=== PATIENT | male | born 1940 | race Caucasian/White ===

== ENCOUNTER 2016-11-18 13:40 | Emergency (ER) | payer MEDICARE, OTHER ==
--- NOTE | 2016-11-18 13:32 | EDM.PDOC ---
ED HPI GENERAL MEDICAL PROBLEM - General Chief Complaint: Lower Extremity Injury/Pain Stated Complaint: IN BY AMBULANCE Time Seen by Provider: 11/18/16 13:27 Source of Information: Reports: Patient History Limitations: Reports: No Limitations - History of Present Illness INITIAL COMMENTS - FREE TEXT/NARRATIVE: 76 yo white male c/o fall off of bar stool two hours ago. No LOC. Pt. c/o Left side pelvic and thigh pain Onset: Today Onset Date: 11/18/16 Onset Time: 12:30 Duration: Hour(s): Location: Reports: Pelvis, Lower Extremity, Left Quality: Reports: Ache Severity: Moderate Improves with: Reports: Rest Worsens with: Reports: Movement Context: Reports: Trauma (fall off of bar stool) Associated Symptoms: Reports: No Other Symptoms Left Hip Pain Score (Numeric/FACES): 7 - Related Data Allergies Allergy/AdvReac Type Severity Reaction Status Date / Time Penicillins Allergy Cannot Verified 11/18/16 14:05 Remember Home Meds: Home Meds . [No Known Home Meds] 11/18/16 [History] Review of Systems - Review of Systems Review Of Systems: See Below Constitutional: Reports: No Symptoms Eyes: Reports: No Symptoms Ears: Reports: No Symptoms Nose: Reports: No Symptoms Mouth/Throat: Reports: No Symptoms Respiratory: Reports: No Symptoms Cardiovascular: Reports: No Symptoms GI/Abdominal: Reports: No Symptoms Genitourinary: Reports: No Symptoms Musculoskeletal: Reports: Joint Pain (left hip, left pelvis and left thigh) Skin: Reports: No Symptoms Neurological: Reports: No Symptoms Psychiatric: Reports: No Symptoms ED EXAM, GENERAL - Physical Exam Exam: See Below Exam Limited By: No Limitations General Appearance: Alert, WD/WN, No Apparent Distress Eye Exam: Bilateral Eye: EOMI, PERRL Ears: Normal External Exam Nose: Normal Inspection Throat/Mouth: Normal Inspection Head: Atraumatic Neck: Normal Inspection Respiratory/Chest: No Respiratory Distress Cardiovascular: Normal Peripheral Pulses, Regular Rate, Rhythm Peripheral Pulses: 2+: Femoral (L), Femoral (R), Dorsalis Pedis (L), Dorsalis Pedis (R) GI/Abdominal: Normal Bowel Sounds Back Exam: Normal Inspection, Full Range of Motion Extremities: Normal Inspection, Leg Pain (left femur area), Limited Range of Motion (left hip) Neurological: Alert, Oriented, CN II-XII Intact, Normal Cognition Psychiatric: Normal Affect, Normal Mood Skin Exam: Warm, Dry, Intact Lymphatic: No Adenopathy Course - Vital Signs Last Recorded V/S: Last Vital Signs Temp 36.7 C 11/18/16 13:33 Pulse 79 11/18/16 13:33 Resp 24 H 11/18/16 13:33 BP 123/59 L 11/18/16 13:33 Pulse Ox 88 L 11/18/16 13:33 - Orders/Labs/Meds Orders: Active Orders 24 hr Category Date Time Status Chest 1V Frontal [CR] Urgent Exams 11/18/16 13:28 Taken Femur wo Cont Lt [CT] Urgent Exams 11/18/16 13:27 Taken Pelvis wo Cont [CT] Urgent Exams 11/18/16 13:27 Taken COMPREHENSIVE METABOLIC PN,CMP [CHEM] Stat Lab 11/18/16 13:45 Received INR,PT,PROTHROMBIN TIME [COAG] Stat Lab 11/18/16 13:45 Received PTT,PARTIAL THROMBOPLSTIN TIME [COAG] Stat Lab 11/18/16 13:45 Received Labs: Laboratory Tests 11/18/16 Range/Units 13:45 WBC 13.3 H (5.0-10.0) 10^3/uL RBC 4.45 L (4.6-6.2) 10^6/uL Hgb 13.9 L (14.0-18.0) g/dL Hct 42.3 (40.0-54.0) % MCV 95.1 (80-100) fL MCH 31.2 (27.0-34.0) pg MCHC 32.9 L (33.0-35.0) g/dL Plt Count 182 (150-450) 10^3/uL Neut % (Auto) 88.0 H (42.2-75.2) % Lymph % (Auto) 5.9 L (20.5-50.1) % [place] % (Auto) 5.2 (2-8) % Eos % (Auto) 0.7 L (1.0-3.0) % Baso % (Auto) 0.2 (0.0-1.0) % Departure - Departure Time of Disposition: 14:21 Disposition: DC/Tfer to Other 70 Condition: Fair Clinical Impression: Intertrochanteric fracture, hip - Discharge Information Forms: ED Department Discharge, Interfacility Transfer EMTALA - My Orders Last 24 Hours: My Active Orders 11/18/16 13:27 Femur wo Cont Lt [CT] Urgent Pelvis wo Cont [CT] Urgent 11/18/16 13:28 Chest 1V Frontal [CR] Urgent 11/18/16 13:45 COMPREHENSIVE METABOLIC PN,CMP [CHEM] Stat INR,PT,PROTHROMBIN TIME [COAG] Stat PTT,PARTIAL THROMBOPLSTIN TIME [COAG] Stat - Assessment/Plan Last 24 Hours: My Active Orders 11/18/16 13:27 Femur wo Cont Lt [CT] Urgent Pelvis wo Cont [CT] Urgent 11/18/16 13:28 Chest 1V Frontal [CR] Urgent 11/18/16 13:45 COMPREHENSIVE METABOLIC PN,CMP [CHEM] Stat INR,PT,PROTHROMBIN TIME [COAG] Stat PTT,PARTIAL THROMBOPLSTIN TIME [COAG] Stat
[2016-11-18 13:38] VITALS: BP 123/59
[2016-11-18 14:20] LABS: CHLORIDE,CL 104 mmol/L (101-111); SODIUM,NA 143 mmol/L (135-145)
[2016-11-18] MEDS ORDERED: fentaNYL 100 MCG/2 ML SDV IVPUSH ONE (14:37)
== END 2016-11-18 15:05 ==
LOC: DL.ED 13:40
DX: S72.142A Displaced intertrochanteric fracture of left femur, initial encounter for closed fracture (principal); Z88.0 Allergy status to penicillin; W17.89XA Other fall from one level to another, initial encounter
CPT/HCPCS: 36415; 71010; 72192; 73700; 80053; 85025; 85610; 85730; 96374; 99284; 99285; J3010

== ENCOUNTER 2016-11-22 11:57 | Inpatient (IN) | payer MEDICARE, OTHER ==
[2016-11-22] MEDS ORDERED: Zolpidem 5 MG Tab PO PRN (14:14)
[2016-11-22] MEDS ORDERED: Sodium Chloride 0.9% 10 ML Syringe FLUSH PRN (14:14)
[2016-11-22] MEDS ORDERED: Docusate Sodium 100 MG Cap PO PRN (14:14)
[2016-11-22] MEDS ORDERED: Ondansetron 4 MG Tab.DIS PO PRN (14:14)
--- NOTE | 2016-11-22 14:34 | PCM.HP ---
H&P History of Present Illness - General Date of Service: 11/22/16 Admit Problem/Dx: Admission Diagnosis/Problem Admission Diagnosis/Problem Weakness Source of Information: Patient, Family - History of Present Illness Initial Comments - Free Text/Narative: The patient is a 76-year-old who has a history of COPD, chronic hypoxemic respiratory failure requiring home oxygen. The patient was hospitalized at [facility] with left hip fracture after he fell from a kitchen stool. The patient underwent short gamma nail fixation on 11/19/2016. The patient was felt to require further physical therapy and [facility]. He is rating the pain as 6 out of 10, worse with activity, better with rest and pain medications. This is since the accidental fall. No associated chest pain, no shortness of breath. He is normally using 2.5 L/m nasal cannula oxygen at home. - Related Data Allergies/Adverse Reactions: Allergies Allergy/AdvReac Type Severity Reaction Status Date / Time doxycycline Allergy Rash Verified 11/22/16 10:49 Penicillins Allergy Blisters Verified 11/22/16 13:22 Home Medications: Home Meds Acetaminophen [Acetaminophen Extra Strength] 500 mg PO PRN 11/22/16 [History] Budesonide [Pulmicort] 0.5 mg NEB DAILY 11/22/16 [History] Past Medical History HEENT History: Reports: Impaired Vision Cardiovascular History: Reports: None Respiratory History: Reports: COPD Genitourinary History: Reports: Urinary Incontinence Neurological History: Reports: None Hematologic History: Reports: Blood Transfusion(s) Oncologic (Cancer) History: Reports: Lung Other Oncologic History: not conclusive for cancer - Infectious Disease History Infectious Disease History: Reports: Chicken Pox, MRSA, Mumps - Past Surgical History HEENT Surgical History: Reports: None Respiratory Surgical History: Reports: None Male Surgical History: Reports: Other (See Below) Other Male Surgeries/Procedures: pt kicked in scrotum, had surgery to reduce swelling Musculoskeletal Surgical History: Reports: Other (See Below) Other Musculoskeletal Surgeries/Procedures:: knee surgery 30 years ago Oncologic Surgical History: Reports: None Dermatological Surgical History: Reports: None Social & Family History - Family History Family Medical History: Unobtainable - Tobacco Use Smoking Status *Q: Former Smoker Years of Tobacco use: 50 Packs/Tins Daily: 1 Used Tobacco, but Quit: Yes Month Tobacco Last Used: 2014 - Caffeine Use Caffeine Use: Reports: Soda, Tea H&P Review of Systems - Review of Systems: Review Of Systems: See Below General: Denies: Fever, Chills Pulmonary: Reports: Shortness of Breath (Chronic at baseline) Cardiovascular: Denies: Chest Pain Gastrointestinal: Denies: Abdominal Pain Neurological: Denies: Confusion Exam - Exam Exam: See Below - Vital Signs Vital Signs: Last Vital Signs Temp 36.9 C 11/22/16 13:04 Pulse 82 11/22/16 13:04 Resp 20 11/22/16 13:04 BP 126/75 11/22/16 13:04 Pulse Ox 100 11/22/16 13:04 Weight: 59.602 kg - Exam General: Alert, Oriented Lungs: Clear to Auscultation, Decreased Breath Sounds Cardiovascular: Regular Rate, Regular Rhythm Extremities: No Pedal Edema, Other (Left hip dressing) Neuro Extensive - Mental Status: Alert, Oriented x3 Psychiatric: Alert, Normal Affect, Normal Mood *Q Meaningful Use (ADM) - VTE *Q VTE Criteria *Q: - Stroke *Q Stroke Criteria *Q: - AMI *Q AMI Criteria *Q: - Problem List (1) COPD (chronic obstructive pulmonary disease) SNOMED Code(s): 55894499 ICD Code: J44.9 - CHRONIC OBSTRUCTIVE PULMONARY DISEASE, UNSPECIFIED Status : Acute Current Visit: Yes (2) Intertrochanteric fracture, hip SNOMED Code(s): 283988479 ICD Code: S72.143A - DISPLACED INTERTROCHANTERIC FRACTURE OF UNSP FEMUR, INIT Status: Acute Current Visit: No Problem List Initiated/Reviewed/Updated: Yes Orders Last 24hrs: Active Orders 24 hr Category Date Time Status Patient Status [ADT] Routine ADT 11/22/16 14:14 Ordered Antiembolic Devices [RC] PER UNIT ROUTINE Care 11/22/16 14:18 Ordered Oxygen Therapy [RC] PRN Care 11/22/16 14:14 Ordered Peripheral IV Care [RC] . DIRECTED Care 11/22/16 14:18 Ordered Up With Assistance [RC] ASDIRECTED Care 11/22/16 14:14 Ordered VTE/DVT Education [RC] PER UNIT ROUTINE Care 11/22/16 14:14 Ordered Vital Signs [RC] QSHIFT Care 11/22/16 14:14 Ordered OT Evaluation and Treatment [CONS] Routine Cons 11/22/16 14:14 Ordered PT Evaluation and Treatment [CONS] Routine Cons 11/22/16 14:14 Ordered Regular Diet [DIET] Diet 11/22/16 Dinner Active Acetaminophen [Tylenol] Med 11/22/16 14:14 Ordered 650 mg PO Q4H PRN Docusate Sodium [Colace] Med 11/22/16 14:14 Ordered 100 mg PO BID PRN Enoxaparin [Lovenox] Med 11/23/16 09:00 Ordered 40 mg SUBCUT DAILY Mometasone/Formoterol [Dulera 100-5 MCG] Med 11/22/16 14:30 Ordered 2 puff IH BIDRT Ondansetron [Zofran ODT] Med 11/22/16 14:14 Ordered 4 mg PO Q6H PRN Sodium Chloride 0.9% [Saline Flush] Med 11/22/16 14:14 Ordered 10 ml FLUSH ASDIRECTED PRN Tiotropium [Spiriva HandiHaler] Med 11/23/16 09:00 Ordered 18 mcg INH DAILY Zolpidem [Ambien] Med 11/22/16 14:14 Ordered 5 mg PO BEDTIME PRN oxyCODONE Med 11/22/16 14:14 Ordered 5 mg PO Q4H PRN Antiembolic Hose [OM.PC] Per Unit Routine Oth 11/22/16 14:16 Ordered Peripheral IV Insertion Adult [OM.PC] Routine Oth 11/22/16 14:14 Ordered Saline Lock Insert [OM.PC] Routine Oth 11/22/16 14:14 Ordered Resuscitation Status Routine Resus Stat 11/22/16 14:14 Ordered Medication Orders Acetaminophen (Tylenol) 650 mg PO Q4H PRN PRN Reason: Pain (Mild 1-3)/fever Docusate Sodium (Colace) 100 mg PO BID PRN PRN Reason: Constipation Enoxaparin Sodium (Lovenox) 40 mg SUBCUT DAILY JAIRO Mometasone Furoate/Formoterol Fumar (Dulera 100-5 Mcg) 2 puff IH BIDRT JAIRO Ondansetron HCl (Zofran Odt) 4 mg PO Q6H PRN PRN Reason: nausea, able to take PO Oxycodone HCl (Oxycodone) 5 mg PO Q4H PRN PRN Reason: Pain (moderate 4-6) Sodium Chloride (Saline Flush) 10 ml FLUSH ASDIRECTED PRN PRN Reason: Keep Vein Open Tiotropium [place] (Spiriva Handihaler) 18 mcg INH DAILY JAIRO Zolpidem Tartrate (Ambien) 5 mg PO BEDTIME PRN PRN Reason: Sleep Assessment/Plan Comment:: The patient is a 76-year-old who has a history of COPD, chronic hypoxemic respiratory failure requiring home oxygen. The patient was hospitalized at [facility] with left hip fracture after he fell from a kitchen stool. The patient underwent short gamma nail fixation on 11/19/2016. The patient was felt to require further physical therapy and was transferred to swing bed. Status post left hip fracture We will admit the patient to swing bed. Consult physical and occupational therapy Postoperative acute blood loss anemia Will treat with iron Follow hemoglobin periodically DVT prophylaxis with Lovenox Pain control with Tylenol or oxycodone as needed COPD Treat with dulera, Spiriva Use DuoNeb as needed for shortness of breath or wheezing Chronic hypoxemic respiratory failure Continue oxygen supplement as needed
[2016-11-22] MEDS: Formoterol/Mometasone 100-5 MCG 8.8 GM Inhaler IH SCH ×2 (16:37→18:30)
[2016-11-23] MEDS: oxyCODONE 5 MG Tab PO PRN ×3 (01:09→20:55)
[2016-11-23] MEDS: Acetaminophen 325 MG Tab PO PRN ×2 (01:20→21:06)
[2016-11-23] MEDS: Formoterol/Mometasone 100-5 MCG 8.8 GM Inhaler IH SCH ×2 (06:43→17:38)
[2016-11-23] MEDS: Tiotropium Inhaler 18 MCG Inhalation Powder Cap Kit of 5 INH SCH (08:35)
[2016-11-23] MEDS: Enoxaparin 40 MG/0.4 ML Syringe SUBCUT SCH (08:36)
[2016-11-24] MEDS: Formoterol/Mometasone 100-5 MCG 8.8 GM Inhaler IH SCH ×2 (07:42→17:30)
[2016-11-24] MEDS: Enoxaparin 40 MG/0.4 ML Syringe SUBCUT SCH (09:14)
[2016-11-24] MEDS: Tiotropium Inhaler 18 MCG Inhalation Powder Cap Kit of 5 INH SCH (09:14)
[2016-11-24] MEDS: oxyCODONE 5 MG Tab PO PRN (22:57)
[2016-11-25] MEDS: oxyCODONE 5 MG Tab PO PRN ×2 (03:04→07:05)
[2016-11-25] MEDS: Formoterol/Mometasone 100-5 MCG 8.8 GM Inhaler IH SCH ×2 (06:55→17:40)
[2016-11-25] MEDS: Enoxaparin 40 MG/0.4 ML Syringe SUBCUT SCH (08:51)
[2016-11-25] MEDS: Tiotropium Inhaler 18 MCG Inhalation Powder Cap Kit of 5 INH SCH (08:52)
[2016-11-25] MEDS: Acetaminophen 325 MG Tab PO PRN (20:08)
[2016-11-26] MEDS: Formoterol/Mometasone 100-5 MCG 8.8 GM Inhaler IH SCH ×2 (06:36→17:55)
[2016-11-26 06:55] LABS: CHLORIDE,CL 103 mmol/L (101-111); SODIUM,NA 140 mmol/L (135-145)
[2016-11-26] MEDS: oxyCODONE 5 MG Tab PO PRN ×2 (08:27→20:55)
[2016-11-26] MEDS: Tiotropium Inhaler 18 MCG Inhalation Powder Cap Kit of 5 INH SCH (09:12)
[2016-11-26] MEDS: Enoxaparin 40 MG/0.4 ML Syringe SUBCUT SCH (09:13)
--- NOTE | 2016-11-26 10:19 | PCM.PN ---
- General Info Date of Service: 11/26/16 Subjective Update: Feeling good, pain in the leg is well controlled. Working with physical and occupational therapy well No shortness of breath, no chest pain On chronic oxygen supplement - Review of Systems General: Denies: Fever, Weakness Pulmonary: Denies: Shortness of Breath Cardiovascular: Denies: Chest Pain Gastrointestinal: Denies: Abdominal Pain Genitourinary: Denies: Dysuria - Patient Data Vitals - Most Recent: Last Vital Signs Temp 37.1 C 11/26/16 07:00 Pulse 57 L 11/26/16 07:00 Resp 20 11/26/16 07:00 BP 92/55 L 11/26/16 07:00 Pulse Ox 98 11/26/16 07:00 Weight - Most Recent: 59.602 kg I&O - Last 24 Hours: Intake & Output 11/25/16 11/26/16 11/26/16 22:59 06:59 14:59 Intake Total 120 400 Output Total 250 800 Balance -130 -400 Lab Results Last 24 Hours: Laboratory Results - last 24 hr 11/26/16 11/26/16 Range/Units 06:15 06:15 WBC 6.3 (5.0-10.0) 10^3/uL RBC 2.71 L (4.6-6.2) 10^6/uL Hgb 8.4 L (14.0-18.0) g/dL Hct 26.7 L (40.0-54.0) % MCV 98.5 (80-100) fL MCH 31.0 (27.0-34.0) pg MCHC 31.5 L (33.0-35.0) g/dL Plt Count 250 (150-450) 10^3/uL Neut % (Auto) 68.7 (42.2-75.2) % Lymph % (Auto) 15.5 L (20.5-50.1) % [place] % (Auto) 10.3 H (2-8) % Eos % (Auto) 5.2 H (1.0-3.0) % Baso % (Auto) 0.3 (0.0-1.0) % Sodium 140 (135-145) mmol/L Potassium 4.6 (3.6-5.0) mmol/L Chloride 103 (101-111) mmol/L Carbon Dioxide 28.0 (21.0-31.0) mmol/L Anion Gap 13.6 BUN 15 (7-18) mg/dL Creatinine 0.8 (0.6-1.3) mg/dL Est Cr Clr Drug Dosing 67.26 mL/min Estimated GFR (MDRD) > 60 Glucose 96 (74-105) mg/dL Calcium 8.5 (8.4-10.2) mg/dl Med Orders - Current: Current Medications Acetaminophen (Tylenol) 650 mg PO Q4H PRN PRN Reason: Pain (Mild 1-3)/fever Last Admin: 11/25/16 20:08 Dose: 650 mg Docusate Sodium (Colace) 100 mg PO BID PRN PRN Reason: Constipation Enoxaparin Sodium (Lovenox) 40 mg SUBCUT DAILY [facility] Last Admin: 11/26/16 09:13 Dose: 40 mg Mometasone Furoate/Formoterol Fumar (Dulera 100-5 Mcg) 2 puff IH BIDRT [facility] Last Admin: 11/26/16 06:36 Dose: 2 puff Ondansetron HCl (Zofran Odt) 4 mg PO Q6H PRN PRN Reason: nausea, able to take PO Oxycodone HCl (Oxycodone) 5 mg PO Q4H PRN PRN Reason: Pain (moderate 4-6) Last Admin: 11/26/16 08:27 Dose: 5 mg Sodium Chloride (Saline Flush) 10 ml FLUSH ASDIRECTED PRN PRN Reason: Keep Vein Open Tiotropium [place] (Spiriva Handihaler) 18 mcg INH DAILY [facility] Last Admin: 11/26/16 09:12 Dose: 18 mcg Zolpidem Tartrate (Ambien) 5 mg PO BEDTIME PRN PRN Reason: Sleep - Exam General: Alert, Oriented Neck: Supple Lungs: Clear to Auscultation, Normal Respiratory Effort Cardiovascular: Regular Rate, Regular Rhythm GI/Abdominal Exam: Normal Bowel Sounds, Soft Extremities: No Pedal Edema Skin: Warm, Dry - Problem List & Annotations (1) COPD (chronic obstructive pulmonary disease) SNOMED Code(s): 54531618 Code(s): J44.9 - CHRONIC OBSTRUCTIVE PULMONARY DISEASE, UNSPECIFIED Status : Acute Current Visit: Yes (2) Intertrochanteric fracture, hip SNOMED Code(s): 166546017 Code(s): S72.143A - DISPLACED INTERTROCHANTERIC FRACTURE OF UNSP FEMUR, INIT Status: Acute Current Visit: No - Problem List Review Problem List Initiated/Reviewed/Updated: Yes - My Orders Last 24 Hours: My Active Orders 11/27/16 09:00 Iron Polysaccharides Complex [Ferrex 150] 150 mg PO DAILY - Plan Plan:: The patient is a 76-year-old who has a history of COPD, chronic hypoxemic respiratory failure requiring home oxygen. The patient was hospitalized at [facility] with left hip fracture after he fell from a kitchen stool. The patient underwent short gamma nail fixation on 11/19/2016. The patient was felt to require further physical therapy and was transferred to swing bed. Status post left hip fracture Admitted to swing bed Doing well Continue physical and occupational therapy Postoperative acute blood loss anemia Will treat with iron Follow hemoglobin periodically DVT prophylaxis with Lovenox Pain control appears good with Tylenol or oxycodone as needed COPD Treat with dulera, Spiriva Use DuoNeb as needed for shortness of breath or wheezing Chronic hypoxemic respiratory failure Continue oxygen supplement as needed
[2016-11-26] MEDS: Iron Polysaccharides Complex 150 MG Cap PO SCH (12:48)
[2016-11-27] MEDS: oxyCODONE 5 MG Tab PO PRN ×2 (01:42→21:17)
[2016-11-27] MEDS: Formoterol/Mometasone 100-5 MCG 8.8 GM Inhaler IH SCH ×2 (06:40→18:05)
[2016-11-27] MEDS: Tiotropium Inhaler 18 MCG Inhalation Powder Cap Kit of 5 INH SCH (08:57)
[2016-11-27] MEDS: Enoxaparin 40 MG/0.4 ML Syringe SUBCUT SCH (08:58)
[2016-11-27] MEDS: Iron Polysaccharides Complex 150 MG Cap PO SCH (08:58)
[2016-11-28] MEDS: Formoterol/Mometasone 100-5 MCG 8.8 GM Inhaler IH SCH ×2 (06:09→18:22)
[2016-11-28] MEDS: Iron Polysaccharides Complex 150 MG Cap PO SCH (08:36)
[2016-11-28] MEDS: Enoxaparin 40 MG/0.4 ML Syringe SUBCUT SCH (08:36)
[2016-11-28] MEDS: Tiotropium Inhaler 18 MCG Inhalation Powder Cap Kit of 5 INH SCH (08:36)
[2016-11-29] MEDS: Formoterol/Mometasone 100-5 MCG 8.8 GM Inhaler IH SCH ×2 (06:26→18:01)
[2016-11-29] MEDS: Iron Polysaccharides Complex 150 MG Cap PO SCH (09:10)
[2016-11-29] MEDS: Enoxaparin 40 MG/0.4 ML Syringe SUBCUT SCH (09:11)
[2016-11-29] MEDS: Tiotropium Inhaler 18 MCG Inhalation Powder Cap Kit of 5 INH SCH (09:11)
[2016-11-30] MEDS: oxyCODONE 5 MG Tab PO PRN ×2 (00:35→23:16)
[2016-11-30] MEDS: Formoterol/Mometasone 100-5 MCG 8.8 GM Inhaler IH SCH ×2 (06:23→17:12)
[2016-11-30] MEDS: Tiotropium Inhaler 18 MCG Inhalation Powder Cap Kit of 5 INH SCH (09:27)
[2016-11-30] MEDS: Iron Polysaccharides Complex 150 MG Cap PO SCH (09:28)
[2016-11-30] MEDS: Enoxaparin 40 MG/0.4 ML Syringe SUBCUT SCH (09:28)
--- NOTE | 2016-11-30 23:28 | PN ---
DATE: 11/30/2016 HISTORY OF PRESENT ILLNESS: Mr. Woods is a 76-year-old gentleman who is a swing bed patient. He had a left hip fracture when he fell from a kitchen stool and underwent short gamma nail fixation on 11/19/2016. He was admitted to swing bed to recover and to work with Physical and Occupational Therapy. Other past medical history includes COPD with chronic hypoxic respiratory failure, requiring home oxygen. Mr. Woods is working on daily basis with Physical and Occupational Therapy. We observed him walking. Apparently, he had knee problems even prior to the surgery, and this has made walking and recovering a little bit more difficult for him, but he is working at it. He denies any chest pain or shortness of breath. He denies any abdominal pain. Review of his clinical data shows that he is taking in fluids. He is voiding and moving his bowels. Appetite is good. He is tolerating his diet. Vital signs are stable. He has remained afebrile. Lab work performed earlier this week included a CBC and a basic panel. Hemoglobin and hematocrit were noted to be 8.4 and 26.7 at that time. Hemoglobin and hematocrit were repeated this morning and have improved to 9.3 and 29.5. PHYSICAL EXAMINATION: GENERAL: On exam, he is seated comfortably in his recliner. He is a pleasant gentleman. Voices no new concerns or complaints. HEENT: Unremarkable. ENT is clear. CHEST: Shows diminished bilateral breath sounds. HEART: Shows regular rate and rhythm. ABDOMEN: Soft and benign. EXTREMITIES: The calves are soft and nontender. NEUROLOGIC: He is intact. PLAN: He will continue to work with Physical and Occupational Therapy. There is a care conference that will be held shortly, and he will continue with his goals of returning to home. [facility] /[id number] MTDD
[2016-12-01] MEDS: Formoterol/Mometasone 100-5 MCG 8.8 GM Inhaler IH SCH ×2 (07:30→17:34)
[2016-12-01] MEDS: Enoxaparin 40 MG/0.4 ML Syringe SUBCUT SCH (09:29)
[2016-12-01] MEDS: Tiotropium Inhaler 18 MCG Inhalation Powder Cap Kit of 5 INH SCH (09:29)
[2016-12-01] MEDS: Iron Polysaccharides Complex 150 MG Cap PO SCH (09:29)
[2016-12-01] MEDS: oxyCODONE 5 MG Tab PO PRN (23:44)
[2016-12-02] MEDS: oxyCODONE 5 MG Tab PO PRN ×2 (09:50→22:21)
[2016-12-02] MEDS: Tiotropium Inhaler 18 MCG Inhalation Powder Cap Kit of 5 INH SCH (09:50)
[2016-12-02] MEDS: Iron Polysaccharides Complex 150 MG Cap PO SCH (09:50)
[2016-12-02] MEDS: Formoterol/Mometasone 100-5 MCG 8.8 GM Inhaler IH SCH ×2 (09:51→17:44)
[2016-12-02] MEDS: Enoxaparin 40 MG/0.4 ML Syringe SUBCUT SCH (09:51)
[2016-12-03] MEDS: Formoterol/Mometasone 100-5 MCG 8.8 GM Inhaler IH SCH ×2 (06:15→17:39)
[2016-12-03] MEDS: Iron Polysaccharides Complex 150 MG Cap PO SCH (08:55)
[2016-12-03] MEDS: Tiotropium Inhaler 18 MCG Inhalation Powder Cap Kit of 5 INH SCH (08:56)
[2016-12-03] MEDS: Enoxaparin 40 MG/0.4 ML Syringe SUBCUT SCH (08:56)
[2016-12-03] MEDS: oxyCODONE 5 MG Tab PO PRN (23:08)
[2016-12-04] MEDS: Iron Polysaccharides Complex 150 MG Cap PO SCH (09:23)
[2016-12-04] MEDS: Formoterol/Mometasone 100-5 MCG 8.8 GM Inhaler IH SCH ×2 (09:23→17:33)
[2016-12-04] MEDS: Enoxaparin 40 MG/0.4 ML Syringe SUBCUT SCH (09:23)
[2016-12-04] MEDS: Tiotropium Inhaler 18 MCG Inhalation Powder Cap Kit of 5 INH SCH (09:24)
[2016-12-04] MEDS: Acetaminophen 325 MG Tab PO PRN (22:33)
[2016-12-05] MEDS: Formoterol/Mometasone 100-5 MCG 8.8 GM Inhaler IH SCH ×2 (06:07→17:58)
[2016-12-05] MEDS: Enoxaparin 40 MG/0.4 ML Syringe SUBCUT SCH (08:12)
[2016-12-05] MEDS: Iron Polysaccharides Complex 150 MG Cap PO SCH (08:12)
[2016-12-05] MEDS: Tiotropium Inhaler 18 MCG Inhalation Powder Cap Kit of 5 INH SCH (08:12)
[2016-12-05] MEDS: oxyCODONE 5 MG Tab PO PRN (08:38)
[2016-12-06] MEDS: oxyCODONE 5 MG Tab PO PRN ×2 (02:02→08:17)
--- NOTE | 2016-12-06 02:39 | PN ---
DATE: 12/05/2016 SUBJECTIVE: Mr. Woods continues to work with Physical and Occupational Therapy. His endurance is improving. His gait remains somewhat impaired by his knees which are arthritic and quite stiff. He was seen in followup on 12/05/2016, by his orthopedist, Dr. Beard. Dr. Beard recommended to continue weightbearing as tolerated. To continue with Physical and Occupational Therapy, and he will see Mr. Woods back in followup in 4 weeks. Review of his clinical data shows that he is drinking adequate fluids. He is tolerating 100% of most of his meals. He is voiding and moving his bowels. Vital signs have remained stable and he remained afebrile. PHYSICAL EXAMINATION: General: He is seated comfortably in his recliner. Apparently, he sleeps in the recliner most nights as well. He voices no concerns or complaints. No chest pain or shortness of breath. No abdominal pain. No calf or leg pain. Vital Signs: On exam today, blood pressure is 109/53, pulse 81, respiratory rate 20, oxygen saturation 100% on 2 L. He is afebrile. HEENT: Is unremarkable. Chest: Showed diminished bilateral breath sounds. Heart: Showed regular rate and rhythm. Abdomen: Soft and benign. Extremities: Showed the calves to be soft and nontender. There was no peripheral edema. IMPRESSION: A 76-year-old gentleman who is status post left hip fracture following a fall at home and placement of a short Gamma nail fixation on 11/19/2016. He continues to work with Physical and Occupational Therapy and will follow up with Orthopedics in 4 weeks. His chronic and severe COPD remained stable without exacerbation. [facility] /[id number]
[2016-12-06] MEDS: Formoterol/Mometasone 100-5 MCG 8.8 GM Inhaler IH SCH ×2 (06:39→18:36)
[2016-12-06] MEDS: Tiotropium Inhaler 18 MCG Inhalation Powder Cap Kit of 5 INH SCH (08:17)
[2016-12-06] MEDS: Iron Polysaccharides Complex 150 MG Cap PO SCH (08:19)
[2016-12-06] MEDS: Enoxaparin 40 MG/0.4 ML Syringe SUBCUT SCH (08:20)
[2016-12-07] MEDS: Tiotropium Inhaler 18 MCG Inhalation Powder Cap Kit of 5 INH SCH (08:56)
[2016-12-07] MEDS: Enoxaparin 40 MG/0.4 ML Syringe SUBCUT SCH (08:56)
[2016-12-07] MEDS: Iron Polysaccharides Complex 150 MG Cap PO SCH (08:56)
[2016-12-07] MEDS: Formoterol/Mometasone 100-5 MCG 8.8 GM Inhaler IH SCH ×2 (08:56→17:25)
[2016-12-07] MEDS: oxyCODONE 5 MG Tab PO PRN (22:02)
[2016-12-08] MEDS: Formoterol/Mometasone 100-5 MCG 8.8 GM Inhaler IH SCH ×2 (07:20→23:42)
[2016-12-08] MEDS: Tiotropium Inhaler 18 MCG Inhalation Powder Cap Kit of 5 INH SCH (09:08)
[2016-12-08] MEDS: Enoxaparin 40 MG/0.4 ML Syringe SUBCUT SCH (09:08)
[2016-12-08] MEDS: Iron Polysaccharides Complex 150 MG Cap PO SCH (09:09)
[2016-12-09] MEDS: Formoterol/Mometasone 100-5 MCG 8.8 GM Inhaler IH SCH ×2 (07:06→17:43)
[2016-12-09] MEDS: Tiotropium Inhaler 18 MCG Inhalation Powder Cap Kit of 5 INH SCH (08:43)
[2016-12-09] MEDS: Enoxaparin 40 MG/0.4 ML Syringe SUBCUT SCH (08:43)
[2016-12-09] MEDS: Iron Polysaccharides Complex 150 MG Cap PO SCH (08:43)
[2016-12-10] MEDS: Formoterol/Mometasone 100-5 MCG 8.8 GM Inhaler IH SCH ×2 (08:04→17:52)
[2016-12-10] MEDS: Enoxaparin 40 MG/0.4 ML Syringe SUBCUT SCH (08:04)
[2016-12-10] MEDS: Iron Polysaccharides Complex 150 MG Cap PO SCH (08:05)
[2016-12-10] MEDS: Tiotropium Inhaler 18 MCG Inhalation Powder Cap Kit of 5 INH SCH (09:49)
--- NOTE | 2016-12-10 12:40 | PN ---
DATE: 12/10/2016 SUBJECTIVE: Mr. Altaf Woods is a 76-year-old male with medical history significant for chronic obstructive pulmonary airway disease, chronic hypoxic respiratory failure requiring home oxygen, severe osteoarthritis, underwent left hip arthroplasty after he fell down from a kitchen stool and underwent Gamma Nail fixation on November 19, 2016, and currently in swing bed undergoing physical therapy and occupational therapy. For the last 24 hours, the patient denies any complaints of chest pain. No complaints of shortness of breath. No complaints of abdominal pain. No nausea. No vomiting. No diarrhea. Complains of mild pain at the surgical site which is the left hip. He is able to ambulate with the help of physical therapy. REVIEW OF SYSTEMS: Cardiovascular, respiratory, gastrointestinal, neurology, and constitutional were all evaluated. PHYSICAL EXAMINATION: Vital Signs: Temperature of 97.9, pulse of 52, respiratory rate of 20, saturating at 100% on 2 L of oxygen, and blood pressure of 99/49. General Appearance: The patient is well oriented to time, place, and person. Follows commands spontaneously. Cardiovascular System: S1 and S2 heard with normal intensity. No gallops. Respiratory System: Clear to auscultation bilaterally. No wheeze. No crepitations. Abdomen: Soft. Bowel sounds positive. Nontender. No rigidity. Extremities: No edema, bilateral lower extremities. Neurology: No gross focal neurological deficit. MEDICATIONS: Continue with: 1. Tylenol 650 every 4 hours as needed for pain and fever. 2. Lovenox 40 mg subcutaneous daily. 3. Dulera two puff inhalation twice a day. 4. Zofran 4 mg every 6 hours as needed for nausea. 5. Oxycodone 5 mg every 4 hours as needed for pain. 6. Spiriva inhalation 18 mcg daily. 7. Ambien 5 mg at bedtime as needed for sleep. ASSESSMENT: 1. Status post Gamma Nail fixation of the left hip. 2. Chronic obstructive pulmonary disease. 3. Chronic hypoxic respiratory failure. PLAN: 1. Left hip fracture, resulting in Gamma Nail fixation. The patient appears to be stable at this time. He is able to weight bear on the left hip site. Continue with physical therapy and occupational therapy. Encourage the patient to ambulate. Continue DVT prophylaxis with Lovenox. 2. Chronic obstructive pulmonary disease. The patient is currently on an inhalation treatment. Continue the same. The patient is encouraged to use incentive spirometer for better pulmonary toileting. No wheeze noted on lung exam today. 3. Chronic hypoxic respiratory failure. Continue the same. Try to maintain saturations around 95%. Continue with supplemental oxygen. 4. Continue with ongoing physical therapy and occupational therapy. 5. Discharge plans ongoing. [facility] /[id number]
[2016-12-11] MEDS: Tiotropium Inhaler 18 MCG Inhalation Powder Cap Kit of 5 INH SCH (09:16)
[2016-12-11] MEDS: Iron Polysaccharides Complex 150 MG Cap PO SCH (09:16)
[2016-12-11] MEDS: Formoterol/Mometasone 100-5 MCG 8.8 GM Inhaler IH SCH ×2 (09:16→17:56)
[2016-12-11] MEDS: Enoxaparin 40 MG/0.4 ML Syringe SUBCUT SCH (09:16)
[2016-12-12] MEDS: Formoterol/Mometasone 100-5 MCG 8.8 GM Inhaler IH SCH ×2 (06:04→18:15)
[2016-12-12] MEDS: Iron Polysaccharides Complex 150 MG Cap PO SCH (08:36)
[2016-12-12] MEDS: Enoxaparin 40 MG/0.4 ML Syringe SUBCUT SCH (08:36)
[2016-12-12] MEDS: Tiotropium Inhaler 18 MCG Inhalation Powder Cap Kit of 5 INH SCH (08:36)
[2016-12-13] MEDS: Formoterol/Mometasone 100-5 MCG 8.8 GM Inhaler IH SCH ×2 (06:35→17:44)
[2016-12-13] MEDS: Iron Polysaccharides Complex 150 MG Cap PO SCH (09:21)
[2016-12-13] MEDS: Enoxaparin 40 MG/0.4 ML Syringe SUBCUT SCH (09:21)
[2016-12-13] MEDS: Tiotropium Inhaler 18 MCG Inhalation Powder Cap Kit of 5 INH SCH (09:27)
--- NOTE | 2016-12-13 12:39 | PCM.SN ---
- Free Text/Narrative Note: [id number] Encounter for Front-wheeled walker. Mr. Woods was seen and examined on 12/13/2016. Mr. Woods fell on 11/18/2016 and sustained a left intertrochanteric hip fracture. He underwent ORIF and placement of a short gamma nail on 11/19/2016. He was admitted to swing bed in [place] on 11/22/2016 for recovery and to work with physical and occupational therapy. Physical and Occupational Therapy feel that he can safely use a front-wheeled walker with a tray. Will use with tennis balls. Reason for walker: Mr. Woods has an impaired gait due to recent hip fracture , as well as osteoarthritis of the knees. He has limited endurance due to COPD and chronic hypoxic respiratory failure and is on home oxgen. Length of need: 99 Associated diagnoses/codes: S72.142S R26.9 J44.9
--- NOTE | 2016-12-13 14:37 | PN ---
DATE: 12/13/2016 HISTORY OF PRESENT ILLNESS: Mr. Woods is a 76-year-old gentleman, who fell off a stool on November 18 and sustained a comminuted displaced left intertrochanteric fracture. On November 22, he underwent a short Gamma nail fixation and was admitted to swing bed on November 22 to recovery and to work with Physical and Occupational therapy. Therapy has been going well. His walking has improved, although, it is limited by osteoarthritis of the knees and stiffness as well as limited endurance due to his COPD with chronic hypoxia. Review of his clinical data shows that he is taking adequate fluids. He is voiding and moving his bowels. He is tolerating 100% of his meals. Vital signs are stable, and he remains afebrile. On exam, he is seated comfortably in his recliner. He voices no new concerns or complaints. He denies any chest pain or shortness of breath. No abdominal pain. No calf or leg pain. No falls or injuries. No issues of concern. PHYSICAL EXAMINATION: General: He is seated comfortably in his recliner. He voices no new concerns or complaints. He appeared comfortable. Vital Signs: Blood pressure 131/55, pulse 59, respiratory rate 18, oxygen saturation 97% on 2 L of nasal cannula, temperature 97.1. HEENT: Unremarkable. Chest: Showed clear, but diminished bilateral breath sounds. Heart: Showed regular rate and rhythm. Abdomen: Soft and benign. Extremities: Showed no edema. Neuro: Neurologically, he was intact. In preparation for his discharge tomorrow, a front wheeled walker with a tray was ordered. The prescription was filled out and sent to your home along with a [id number] encounter for a front wheeled walker. The walker is being ordered on the basis of hip fracture with impaired gait due to both the fracture and osteoarthritis in the knees, and the fact that he has poor endurance due to his COPD, and chronic hypoxic respiratory failure. We will inform the discharging physician tomorrow that this information will need to also be included in the discharge summary. Mr. Woods denied that he needed any other services, and no other changes were made in his care today. [facility] /[id number]
[2016-12-14] MEDS: Formoterol/Mometasone 100-5 MCG 8.8 GM Inhaler IH SCH (06:33)
[2016-12-14 07:01] VITALS: BP 111/42
[2016-12-14] MEDS: Enoxaparin 40 MG/0.4 ML Syringe SUBCUT SCH (09:16)
[2016-12-14] MEDS: Iron Polysaccharides Complex 150 MG Cap PO SCH (09:16)
[2016-12-14] MEDS: Tiotropium Inhaler 18 MCG Inhalation Powder Cap Kit of 5 INH SCH (09:17)
--- NOTE | 2017-03-01 09:15 | DISCH ---
DISCHARGE DIAGNOSES: 1. Status post comminuted displaced left intertrochanteric hip fracture, 11/18/2016. 2. Status post short Gamma nail fixation, 11/19/2016. 3. Chronic obstructive pulmonary disease/chronic hypoxic respiratory failure, stable. 4. Oxygen dependent. 5. Admitted for physical and occupational therapy during swing bed stay. BRIEF HISTORY OF PRESENT ILLNESS: Mr. Woods is a 76-year-old gentleman who fell off a stool at his home on 11/18. It sounds as if he may have caught his foot in the leg of the stool. He sustained a comminuted displaced left intertrochanteric fracture, and on 11/19, he underwent a short Gamma nail fixation and then later was admitted to swing bed on 11/22 to recover and to work with Physical and Occupational Therapy. PERTINENT LABS AND X-RAYS: CBC was checked during the admission. White count and platelets were normal. Hemoglobin and hematocrit were 8.4 and 26.7, and on recheck, prior to discharge, 9.3 and 29.5. Basic panel was checked. Electrolytes were normal. BUN and creatinine were 15 and 0.8 with a GFR of more than 60. No imaging studies were performed during this admission. HOSPITAL COURSE: Mr. Woods did well with physical therapy. His walking improved, although was quite limited by the osteoarthritis of his knees and stiffness as well as his limited endurance due to his COPD with chronic hypoxia. He was taking in adequate fluids. He was voiding and moving his bowels. He was tolerating 100% of his meals. His vital signs were stable. He remained afebrile. On the day of discharge, he felt ready to be discharged home. He was seated comfortably in his room. He voiced no new concerns or complaints. He denied any chest pain or shortness of breath. No abdominal pain. No calf or leg pain. No falls or injuries during this admission, and basically, he voiced no issues of concern. PHYSICAL EXAMINATION: Vital Signs: Blood pressure was 111/42, pulse 64, respiratory rate 20, oxygen saturation 94% on 2 L, and he was afebrile. Weight was 131 pounds 9.6 ounces. Height 5 feet 6 inches. HEENT: Unremarkable. Neck: No JVD or bruits. No adenopathy. Chest: Showed clear, but diminished bilateral breath sounds. Heart: Showed regular rate and rhythm. Abdomen: Soft and benign. Extremities: Showed no edema. Calves were soft and nontender. Neurologic: He was intact. In preparation for his discharge to home, a front-wheeled walker with a tray had been ordered. The prescription and [id number] encounter were filled out. The walker was ordered on the basis of the hip fracture with impaired gait due to both the fracture and his osteoarthritis in the knees and the fact that he has poor endurance due to his COPD and chronic hypoxic respiratory failure. Mr. Woods denied that he needed any other services, and no other changes were made in his care prior to discharge. DISCHARGE MEDICATIONS: 1. Tylenol 500 mg p.r.n. 2. Pulmicort 0.5 mg by nebulizer daily. ALLERGIES: Doxycycline and penicillin. CONDITION AT TIME OF DISCHARGE: Hemodynamically and neurologically stable. FOLLOWUP APPOINTMENT: January 01, at 10:[address] Beard, Orthopedics, at the [facility] in [place]. [facility] /[id number]
== END 2016-12-14 13:30 | disposition home or self-care (01) | DRG 560 ==
LOC: DL.MS 12:50 → EEVIPCON 12:50 → UNDOADMIN 12:50 → DL.MS 14:14
PROVIDERS: ADMIT Internal Medicine; ATTEND Internal Medicine
DX: Z47.89 Encounter for other orthopedic aftercare (principal); J96.11 Chronic respiratory failure with hypoxia; R53.1 Weakness; J44.9 Chronic obstructive pulmonary disease, unspecified; R32 Unspecified urinary incontinence; H54.7 Unspecified visual loss; Z88.0 Allergy status to penicillin; Z88.1 Allergy status to other antibiotic agents; Z87.891 Personal history of nicotine dependence; M17.0 Bilateral primary osteoarthritis of knee; S72.002D Fracture of unspecified part of neck of left femur, subsequent encounter for closed fracture with routine healing; W17.89XD Other fall from one level to another, subsequent encounter
CPT/HCPCS: 36415; 80048; 85014; 85018; 85025; 97110-GO; 97110-GP; 97116-GP; 97162-GP; 97165-GO; 97530-GO; 97535-GO; A9270-GY; J1650

== ENCOUNTER 2019-10-21 18:43 | Inpatient (IN) | payer MEDICARE, OTHER ==
[2019-10-21] MEDS ORDERED: Acetaminophen 325 MG Tab PO ONE (19:17)
--- NOTE | 2019-10-21 20:12 | CR ---
PROCEDURE INFORMATION: Exam: XR Chest, 1 View Exam date and time: 10/21/2019 7:54 PM Age: 79 years old Clinical indication: Shortness of breath; Additional info: SOB this afternoon, o2 dependent TECHNIQUE: Imaging protocol: XR of the chest Views: 1 view. COMPARISON: CR Chest 1V Frontal 11/18/2016 2:09 PM FINDINGS: Lungs: Bilateral perihilar and infrahilar ground-glass and streak like airspace opacifications are appreciated. COPD related pulmonary changes are appreciated. Mild pulmonary emphysema is also noted. Pleural space: Subtle blunting of the bilateral costophrenic angles. Heart/Mediastinum: Unremarkable. No cardiomegaly. Bones/joints: No acute abnormality or aggressive osseous lesion. IMPRESSION: 1. Concern for acute bilateral perihilar and infrahilar interstitial/airspace disease for which the differential would include infectious pneumonic process versus pulmonary edema. 2. Question of small bilateral pleural effusions. 3. COPD/emphysema is suggested.
[2019-10-21 20:19] LABS: ANION GAP 8.8 mEq/L (7-13); CHLORIDE,CL 98 mmol/L (98-107); SODIUM,NA 138 mmol/L (136-145)
--- NOTE | 2019-10-21 20:38 | EDM.PDOC ---
ED HPI GENERAL MEDICAL PROBLEM - General Chief Complaint: Respiratory Problem Stated Complaint: SORE THROAT/SOB/WEAKNESS Time Seen by Provider: 10/21/19 19:20 Source of Information: Reports: Patient, Other History Limitations: Reports: No Limitations - History of Present Illness INITIAL COMMENTS - FREE TEXT/NARRATIVE: ED with landcare facilitator reports increased weakness today, chronic cough, Patient reports some sore throat past couple of days. Hx COPD on oxygen at home, cough about same. Temp on presentation 101.2. 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 Appetite fair, no vomiting. - Related Data Allergies Allergy/AdvReac Type Severity Reaction Status Date / Time doxycycline Allergy Rash Verified 10/21/19 21:41 Penicillins Allergy Blisters Verified 10/21/19 21:41 Home Meds: Home Meds Acetaminophen [Acetaminophen Extra Strength] 500 mg PO ASDIRECTED PRN 11/22/16 [History] Budesonide [Pulmicort] 0.5 mg NEB DAILY 11/22/16 [History] Past Medical History HEENT History: Reports: Hard of Hearing, Impaired Vision Cardiovascular History: Reports: None Respiratory History: Reports: COPD Genitourinary History: Reports: Urinary Incontinence Neurological History: Reports: None Hematologic History: Reports: Blood Transfusion(s) Oncologic (Cancer) History: Reports: Lung Other Oncologic History: not conclusive for cancer - Infectious Disease History Infectious Disease History: Reports: Chicken Pox, MRSA, Mumps - Past Surgical History HEENT Surgical History: Reports: None Respiratory Surgical History: Reports: None Male Surgical History: Reports: Other (See Below) Other Male Surgeries/Procedures: pt kicked in scrotum, had surgery to reduce swelling Musculoskeletal Surgical History: Reports: Other (See Below) Other Musculoskeletal Surgeries/Procedures:: knee surgery 30 years ago Oncologic Surgical History: Reports: None Dermatological Surgical History: Reports: None Social & Family History - Family History Family Medical History: Unobtainable - Tobacco Use Smoking Status *Q: Former Smoker Used Tobacco, but Quit: Yes Month/Year Tobacco Last Used: unk - Caffeine Use Caffeine Use: Reports: None - Recreational Drug Use Recreational Drug Use: No ED ROS GENERAL - Review of Systems Review Of Systems: See Below ED EXAM, GENERAL - Physical Exam Exam: See Below Exam Limited By: No Limitations General Appearance: Alert, Thin Eye Exam: Bilateral Eye: EOMI Ears: Normal External Exam, Hearing Loss Nose: Normal Inspection Throat/Mouth: Other (tacky) Head: Atraumatic, Normocephalic Neck: Normal Inspection Respiratory/Chest: No Respiratory Distress, Decreased Breath Sounds, Crackles (bases) Cardiovascular: Normal Peripheral Pulses, Regular Rate, Rhythm GI/Abdominal: Normal Bowel Sounds, Soft Back Exam: Normal Inspection, Full Range of Motion Extremities: No: Pedal Edema Neurological: Alert, Oriented, Normal Cognition Psychiatric: Normal Affect Skin Exam: Warm, Dry, Other (cheeks flushed) Course - Vital Signs Last Recorded V/S: Last Vital Signs Temp 98.2 F 10/22/19 01:00 Pulse 53 L 10/22/19 01:00 Resp 16 10/22/19 01:00 BP 98/45 L 10/22/19 01:00 Pulse Ox 100 10/22/19 01:00 - Orders/Labs/Meds Orders: Active Orders 24 hr Category Date Time Status CULTURE BLOOD [] Stat Lab 10/21/19 19:42 Results CULTURE BLOOD [] Stat Lab 10/21/19 19:48 Received CULTURE STREP A CONFIRMATION [] Stat Lab 10/21/19 19:06 Results STREP SCRN A RAPID W CULT CONF [] Stat Lab 10/21/19 19:06 Results Sodium Chloride 0.9% [Normal Saline] 1,000 ml Med 10/21/19 20:54 Active IV .BOLUS Blood Culture x2 Reflex Set [OM.PC] Stat Oth 10/21/19 19:14 Ordered Medication Orders Acetaminophen (Tylenol) 650 mg PO Q6H PRN PRN Reason: Pain Albuterol (Proventil Neb Soln) 2.5 mg NEB Q4H PRN PRN Reason: shortness of breath/wheezing Albuterol/Ipratropium (Duoneb 3.0-0.5 Mg/3 Ml) 3 ml NEB Q6HRRT JAIRO Last Admin: 10/22/19 00:55 Dose: 3 ml Documented by: ANNAMARIA Budesonide (Pulmicort) 0.5 mg NEB DAILY JAIRO Docusate Sodium (Colace) 100 mg PO BID PRN PRN Reason: Constipation Enoxaparin Sodium (Lovenox) 40 mg SUBCUT DAILY JAIRO Sodium Chloride (Normal Saline) 1,000 mls @ 100 mls/hr IV .BOLUS ONE Stop: 10/22/19 06:53 Last Admin: 10/21/19 21:05 Dose: 100 mls/hr Documented by: EMILIANO Piperacillin Sod/Tazobactam (Sod 3.375 gm/ Sodium Chloride) 100 mls @ 200 mls/hr IV Q6H [facility] Last Admin: 10/21/19 22:32 Dose: 200 mls/hr Documented by: ANNAMARIA Vancomycin HCl 1 gm/ Sodium (Chloride) 250 mls @ 166.667 mls/hr IV Q24H [facility] Ondansetron HCl (Zofran Odt) 4 mg PO Q6H PRN PRN Reason: nausea, able to take PO Ondansetron HCl (Zofran) 4 mg IVPUSH Q6H PRN PRN Reason: Nausea/Vomiting Prednisone (Prednisone) 40 mg PO DAILY [facility] Last Admin: 10/21/19 22:32 Dose: 40 mg Documented by: ANNAMARIA Senna/Docusate Sodium (Senna Plus) 1 tab PO BEDTIME PRN PRN Reason: Constipation Vancomycin HCl (Pharmacy To Dose - Vancomycin) 1 dose .XX ASDIRECTED [facility] Labs: Laboratory Tests 10/21/19 10/21/19 10/21/19 Range/Units 19:05 19:42 19:42 WBC 8.8 (5.0-10.0) 10^3/uL RBC 4.26 L (4.6-6.2) 10^6/uL Hgb 13.4 L D (14.0-18.0) g/dL Hct 42.9 (40.0-54.0) % MCV 100.7 H (80-100) fL MCH 31.5 (27.0-34.0) pg MCHC 31.2 L (33.0-35.0) g/dL Plt Count 150 D (150-450) 10^3/uL Neut % (Auto) 85.7 H (42.2-75.2) % Lymph % (Auto) 4.6 L (20.5-50.1) % [place] % (Auto) 8.6 H (2-8) % Eos % (Auto) 0.9 L (1.0-3.0) % Baso % (Auto) 0.2 (0.0-1.0) % PT (9.0-12.0) SEC INR (0.9-1.2) Sodium (136-145) mmol/L Potassium (3.5-5.1) mmol/L Chloride (98-107) mmol/L Carbon Dioxide (21-32) mmol/L Anion Gap (7-13) mEq/L BUN (7-18) mg/dL Creatinine (0.70-1.30) mg/dL Est Cr Clr Drug Dosing Estimated GFR (MDRD) BUN/Creatinine Ratio (No establ ref range) Glucose (74-99) mg/dL Lactic Acid 1.3 (0.4-2.0) mmol/L Calcium (8.5-10.1) mg/dL Total Bilirubin (0.2-1.0) mg/dL AST (15-37) U/L ALT (16-63) U/L Alkaline Phosphatase (46-116) U/L Troponin I (0.000-0.056) ng/mL C-Reactive Protein (0.0-0.9) mg/dL B-Natriuretic Peptide (0-100) pg/ml Total Protein (6.4-8.2) g/dL Albumin (3.4-5.0) g/dL Globulin Albumin/Globulin Ratio COVID-19 (ANGELINA) Negative (NEGATIVE) 10/21/19 10/21/19 Range/Units 19:48 19:48 WBC (5.0-10.0) 10^3/uL RBC (4.6-6.2) 10^6/uL Hgb (14.0-18.0) g/dL Hct (40.0-54.0) % MCV (80-100) fL MCH (27.0-34.0) pg MCHC (33.0-35.0) g/dL Plt Count (150-450) 10^3/uL Neut % (Auto) (42.2-75.2) % Lymph % (Auto) (20.5-50.1) % [place] % (Auto) (2-8) % Eos % (Auto) (1.0-3.0) % Baso % (Auto) (0.0-1.0) % PT 10.9 (9.0-12.0) SEC INR 1.2 (0.9-1.2) Sodium 138 (136-145) mmol/L Potassium 4.8 (3.5-5.1) mmol/L Chloride 98 (98-107) mmol/L Carbon Dioxide 36 H (21-32) mmol/L Anion Gap 8.8 (7-13) mEq/L BUN 14 (7-18) mg/dL Creatinine 1.10 (0.70-1.30) mg/dL Est Cr Clr Drug Dosing TNP Estimated GFR (MDRD) > 60 BUN/Creatinine Ratio 12.7 (No establ ref range) Glucose 153 H (74-99) mg/dL Lactic Acid (0.4-2.0) mmol/L Calcium 8.7 (8.5-10.1) mg/dL Total Bilirubin 0.5 (0.2-1.0) mg/dL AST 22 (15-37) U/L ALT 18 (16-63) U/L Alkaline Phosphatase 60 (46-116) U/L Troponin I < 0.017 (0.000-0.056) ng/mL C-Reactive Protein 3.6 H (0.0-0.9) mg/dL B-Natriuretic Peptide 212 H (0-100) pg/ml Total Protein 8.2 (6.4-8.2) g/dL Albumin 3.5 (3.4-5.0) g/dL Globulin 4.7 Albumin/Globulin Ratio 0.7 COVID-19 (ANGELINA) (NEGATIVE) Meds: Medications Generic Name Dose Route Start Last Admin Trade Name Freq PRN Reason Stop Dose Admin Acetaminophen 650 mg 10/21/19 21:47 Tylenol PO Q6H PRN Pain Albuterol 2.5 mg 10/21/19 21:47 Proventil Neb Soln NEB Q4H PRN shortness of breath/wheezing Albuterol/Ipratropium 3 ml 10/22/19 01:00 10/22/19 00:55 Duoneb 3.0-0.5 Mg/3 Ml NEB 3 ml Q6HRRT JAIRO Administration Budesonide 0.5 mg 10/21/19 22:00 Pulmicort NEB DAILY JAIRO Docusate Sodium 100 mg 10/21/19 21:47 Colace PO BID PRN Constipation Enoxaparin Sodium 40 mg 10/22/19 09:00 Lovenox SUBCUT DAILY JAIRO Sodium Chloride 1,000 mls @ 100 mls/hr 10/21/19 20:54 10/21/19 21:05 Normal Saline IV 10/22/19 06:53 100 mls/hr .BOLUS ONE Administration Piperacillin Sod/Tazobactam 100 mls @ 200 mls/hr 10/21/19 22:00 10/21/19 22:32 Sod 3.375 gm/ Sodium Chloride IV 200 mls/hr Q6H JAIRO Administration Vancomycin HCl 1 gm/ Sodium 250 mls @ 166.667 mls/hr 10/22/19 21:00 Chloride IV Q24H JAIRO Ondansetron HCl 4 mg 10/21/19 21:47 Zofran Odt PO Q6H PRN nausea, able to take PO Ondansetron HCl 4 mg 10/21/19 21:47 Zofran IVPUSH Q6H PRN Nausea/Vomiting Prednisone 40 mg 10/21/19 22:15 10/21/19 22:32 Prednisone PO 40 mg DAILY JAIRO Administration Senna/Docusate Sodium 1 tab 10/21/19 21:47 Senna Plus PO BEDTIME PRN Constipation Vancomycin HCl 1 dose 10/21/19 22:00 Pharmacy To Dose - Vancomycin .XX ASDIRECTED JAIRO Discontinued Medications Generic Name Dose Route Start Last Admin Trade Name Freq PRN Reason Stop Dose Admin Acetaminophen 650 mg 10/21/19 19:17 10/21/19 19:29 Tylenol PO 10/21/19 19:18 650 mg NOW ONE Administration Vancomycin HCl 750 mg/ Sodium 250 mls @ 166.667 mls/hr 10/21/19 20:54 10/21/19 21:05 Chloride IV 10/21/19 22:23 166.667 mls/hr ONETIME ONE Administration Departure - Departure Time of Disposition: 21:15 Disposition: Admitted As Inpatient 67 Condition: Fair Clinical Impression: Oxygen dependent COPD (chronic obstructive pulmonary disease) Qualifiers: COPD type: COPD with acute exacerbation Qualified Code(s): J44.1 - Chronic obstructive pulmonary disease with (acute) exacerbation Pneumonia Qualifiers: Pneumonia type: due to unspecified organism Laterality: bilateral Lung location: unspecified part of lung Qualified Code(s): J18.9 - Pneumonia, unspecified organism - Discharge Information *PRESCRIPTION DRUG MONITORING PROGRAM REVIEWED*: No *COPY OF PRESCRIPTION DRUG MONITORING REPORT IN PATIENT MISSY: No Sepsis Event Note (ED) - Evaluation Sepsis Screening Result: Possible Sepsis Risk - Focused Exam Vital Signs: Vital Signs Temp Pulse Resp BP Pulse Ox 10/21/19 19:14 101.2 F H 86 27 H 171/75 H 94 L - My Orders Last 24 Hours: My Active Orders 10/21/19 19:06 CULTURE STREP A CONFIRMATION [RM] Stat STREP SCRN A RAPID W CULT CONF [RM] Stat 10/21/19 19:14 Blood Culture x2 Reflex Set [OM.PC] Stat 10/21/19 19:42 CULTURE BLOOD [BC] Stat 10/21/19 19:48 CULTURE BLOOD [BC] Stat 10/21/19 20:54 Sodium Chloride 0.9% [Normal Saline] 1,000 ml IV .BOLUS - Assessment/Plan Last 24 Hours: My Active Orders 10/21/19 19:06 CULTURE STREP A CONFIRMATION [RM] Stat STREP SCRN A RAPID W CULT CONF [RM] Stat 10/21/19 19:14 Blood Culture x2 Reflex Set [OM.PC] Stat 10/21/19 19:42 CULTURE BLOOD [BC] Stat 10/21/19 19:48 CULTURE BLOOD [BC] Stat 10/21/19 20:54 Sodium Chloride 0.9% [Normal Saline] 1,000 ml IV .BOLUS
[2019-10-21] MEDS ORDERED: Sodium Chloride 0.9% 1,000 ML IV ONE (20:54)
[2019-10-21] MEDS ORDERED: Acetaminophen 325 MG Tab PO PRN (21:47)
[2019-10-21] MEDS ORDERED: Ondansetron 4 MG/2 ML SDV IVPUSH PRN (21:47)
[2019-10-21] MEDS ORDERED: Docusate Sodium 100 MG Cap PO PRN (21:47)
[2019-10-21] MEDS ORDERED: Ondansetron 4 MG Tab.DIS PO PRN (21:47)
[2019-10-21] MEDS ORDERED: Albuterol 0.083% 2.5 MG/3 ML Neb Soln NEB PRN (21:47)
--- NOTE | 2019-10-21 22:04 | PCM.HP ---
H&P History of Present Illness - General Date of Service: 10/21/19 Admit Problem/Dx: Admission Diagnosis/Problem Admission Diagnosis/Problem Severe sepsis with acute organ dysfunction Source of Information: Patient, Old Records, Provider History Limitations: Reports: Other (Severe bilateral hearing loss. ) - History of Present Illness Initial Comments - Free Text/Narative: Patient is a 79-year-old male with medical history significant for COPD, tobacco use disorder quit 2 years ago, alcohol use disorder quit 3 years ago, and chronic respiratory failure with O2 dependence, on 2 L of O2 at baseline who presented to the ED with complaints of weakness. Patient reports that he has been weak over the past few days but has progressively worsened to the point wh ere today he could barely get himself out of bed to the bathroom. Reports that this is new for him so he decided to seek help. Reports cough with greenish sputum production. Reports shaking chills and unintended weight loss. Denies diaphoresis. Did not check his temperature at home. Reports shortness of breath but unable to characterize how far he can ambulate before he stops to catch his breath. Reports that he has lost about 14 pounds over the past 1 to 2 months and that is unintended weight loss. Reports that he has been eating well. Denies chest pain, nausea, vomiting, diarrhea, constipation, dysuria, hematuria, edema, or any new symptoms. - Related Data Allergies/Adverse Reactions: Allergies Allergy/AdvReac Type Severity Reaction Status Date / Time doxycycline Allergy Rash Verified 10/21/19 21:41 Penicillins Allergy Blisters Verified 10/21/19 21:41 Home Medications: Home Meds Acetaminophen [Acetaminophen Extra Strength] 500 mg PO ASDIRECTED PRN 11/22/16 [History] Budesonide [Pulmicort] 0.5 mg NEB DAILY 11/22/16 [History] Past Medical History HEENT History: Reports: Hard of Hearing, Impaired Vision Cardiovascular History: Reports: None Respiratory History: Reports: COPD Genitourinary History: Reports: Urinary Incontinence Neurological History: Reports: None Hematologic History: Reports: Blood Transfusion(s) Oncologic (Cancer) History: Reports: Lung Other Oncologic History: not conclusive for cancer - Infectious Disease History Infectious Disease History: Reports: Chicken Pox, MRSA, Mumps - Past Surgical History HEENT Surgical History: Reports: None Respiratory Surgical History: Reports: None Male Surgical History: Reports: Other (See Below) Other Male Surgeries/Procedures: pt kicked in scrotum, had surgery to reduce swelling Musculoskeletal Surgical History: Reports: Other (See Below) Other Musculoskeletal Surgeries/Procedures:: knee surgery 30 years ago Oncologic Surgical History: Reports: None Dermatological Surgical History: Reports: None Social & Family History - Family History Family Medical History: Unobtainable - Tobacco Use Smoking Status *Q: Former Smoker Used Tobacco, but Quit: Yes Month/Year Tobacco Last Used: unk - Caffeine Use Caffeine Use: Reports: None - Recreational Drug Use Recreational Drug Use: No H&P Review of Systems - Review of Systems: Review Of Systems: Comprehensive ROS is negative, except as noted in HPI. Exam - Exam Exam: See Below - Vital Signs Vital Signs: Last Vital Signs Temp 101.2 F H 10/21/19 19:14 Pulse 86 10/21/19 19:14 Resp 27 H 10/21/19 19:14 BP 171/75 H 10/21/19 19:14 Pulse Ox 94 L 10/21/19 19:14 Weight: 114 lb 9.6 oz - Exam Quality Assessment: Supplemental Oxygen (4.5 L) General: Alert, Oriented, Cooperative, Moderate Distress HEENT: Conjunctiva Clear, EOMI, Other (Severely hard of hearing. ) Neck: Supple, Trachea Midline Lungs: Decreased Breath Sounds, Wheezing Cardiovascular: Regular Rate, Regular Rhythm GI/Abdominal Exam: Normal Bowel Sounds, Soft, Non-Tender, No Distention Neuro Extensive - Mental Status: Alert, Oriented x3, Normal Mood/Affect, Normal Cognition Neuro Extensive - Motor, Sensory, Reflexes: CN II-XII Intact Psychiatric: Alert, Normal Affect - Patient Data Lab Results Last 24 hrs: Laboratory Results - last 24 hr 10/21/19 10/21/19 10/21/19 Range/Units 19:05 19:42 19:42 WBC 8.8 (5.0-10.0) 10^3/uL RBC 4.26 L (4.6-6.2) 10^6/uL Hgb 13.4 L D (14.0-18.0) g/dL Hct 42.9 (40.0-54.0) % MCV 100.7 H (80-100) fL MCH 31.5 (27.0-34.0) pg MCHC 31.2 L (33.0-35.0) g/dL Plt Count 150 D (150-450) 10^3/uL Neut % (Auto) 85.7 H (42.2-75.2) % Lymph % (Auto) 4.6 L (20.5-50.1) % [place] % (Auto) 8.6 H (2-8) % Eos % (Auto) 0.9 L (1.0-3.0) % Baso % (Auto) 0.2 (0.0-1.0) % PT (9.0-12.0) SEC INR (0.9-1.2) Sodium (136-145) mmol/L Potassium (3.5-5.1) mmol/L Chloride (98-107) mmol/L Carbon Dioxide (21-32) mmol/L Anion Gap (7-13) mEq/L BUN (7-18) mg/dL Creatinine (0.70-1.30) mg/dL Est Cr Clr Drug Dosing Estimated GFR (MDRD) BUN/Creatinine Ratio (No establ ref range) Glucose (74-99) mg/dL Lactic Acid 1.3 (0.4-2.0) mmol/L Calcium (8.5-10.1) mg/dL Total Bilirubin (0.2-1.0) mg/dL AST (15-37) U/L ALT (16-63) U/L Alkaline Phosphatase (46-116) U/L Troponin I (0.000-0.056) ng/mL C-Reactive Protein (0.0-0.9) mg/dL B-Natriuretic Peptide (0-100) pg/ml Total Protein (6.4-8.2) g/dL Albumin (3.4-5.0) g/dL Globulin Albumin/Globulin Ratio COVID-19 (ANGELINA) Negative (NEGATIVE) 10/21/19 10/21/19 Range/Units 19:48 19:48 WBC (5.0-10.0) 10^3/uL RBC (4.6-6.2) 10^6/uL Hgb (14.0-18.0) g/dL Hct (40.0-54.0) % MCV (80-100) fL MCH (27.0-34.0) pg MCHC (33.0-35.0) g/dL Plt Count (150-450) 10^3/uL Neut % (Auto) (42.2-75.2) % Lymph % (Auto) (20.5-50.1) % [place] % (Auto) (2-8) % Eos % (Auto) (1.0-3.0) % Baso % (Auto) (0.0-1.0) % PT 10.9 (9.0-12.0) SEC INR 1.2 (0.9-1.2) Sodium 138 (136-145) mmol/L Potassium 4.8 (3.5-5.1) mmol/L Chloride 98 (98-107) mmol/L Carbon Dioxide 36 H (21-32) mmol/L Anion Gap 8.8 (7-13) mEq/L BUN 14 (7-18) mg/dL Creatinine 1.10 (0.70-1.30) mg/dL Est Cr Clr Drug Dosing TNP Estimated GFR (MDRD) > 60 BUN/Creatinine Ratio 12.7 (No establ ref range) Glucose 153 H (74-99) mg/dL Lactic Acid (0.4-2.0) mmol/L Calcium 8.7 (8.5-10.1) mg/dL Total Bilirubin 0.5 (0.2-1.0) mg/dL AST 22 (15-37) U/L ALT 18 (16-63) U/L Alkaline Phosphatase 60 (46-116) U/L Troponin I < 0.017 (0.000-0.056) ng/mL C-Reactive Protein 3.6 H (0.0-0.9) mg/dL B-Natriuretic Peptide 212 H (0-100) pg/ml Total Protein 8.2 (6.4-8.2) g/dL Albumin 3.5 (3.4-5.0) g/dL Globulin 4.7 Albumin/Globulin Ratio 0.7 COVID-19 (ANGELINA) (NEGATIVE) Result Diagrams: 10/21/19 19:42 10/21/19 19:48 Chuck Results Last 24 hrs: Microbiology 10/21/19 19:06 Group A Streptococcus Rapid Screen - Final Throat NEGATIVE STREP A SCREEN REFERENCE RANGE: NEGATIVE 10/21/19 19:42 Anaerobic Blood Culture - Final Blood - Venous - Problem List (1) Severe sepsis with acute organ dysfunction SNOMED Code(s): 73434393 ICD Code: A41.9 - SEPSIS, UNSPECIFIED ORGANISM; R65.20 - SEVERE SEPSIS WITHOUT SEPTIC SHOCK Status: Acute Current Visit: Yes (2) Acute respiratory failure with hypoxia SNOMED Code(s): 79528168, 441445210 ICD Code: J96.01 - ACUTE RESPIRATORY FAILURE WITH HYPOXIA Status: Acute Current Visit: Yes (3) Bilateral pneumonia SNOMED Code(s): 844088984 ICD Code: J18.9 - PNEUMONIA, UNSPECIFIED ORGANISM Status: Acute Current Visit: Yes (4) Weakness SNOMED Code(s): 63433241 ICD Code: R53.1 - WEAKNESS Status: Acute Current Visit: Yes (5) COPD (chronic obstructive pulmonary disease) SNOMED Code(s): 70016744 ICD Code: J44.9 - CHRONIC OBSTRUCTIVE PULMONARY DISEASE, UNSPECIFIED Status: Acute Current Visit: No (6) Impaired gait and mobility SNOMED Code(s): 97853210, 68640506 ICD Code: R26.89 - OTHER ABNORMALITIES OF GAIT AND MOBILITY Status: Acute Current Visit: No Problem List Initiated/Reviewed/Updated: Yes Orders Last 24hrs: Active Orders 24 hr Category Date Time Status Admission Diagnosis [ADT] Stat ADT 10/21/19 20:56 Ordered Admission Status [Patient Status] [ADT] Routine ADT 10/21/19 20:56 Active Ambulate [RC] ASDIRECTED Care 10/21/19 21:47 Active Bedrest Bedside Commode [RC] ASDIRECTED Care 10/21/19 21:47 Active Cardiac Monitoring [RC] . DIRECTED Care 10/21/19 20:56 Active EKG 12 Lead [EKG Documentation Completion] [RC] STAT Care 10/21/19 19:14 Active Height and Weight [RC] DAILY Care 10/21/19 21:47 Active Intake and Output [RC] QSHIFT Care 10/21/19 21:49 Active Oxygen Therapy [RC] PRN Care 10/21/19 21:47 Active RT Aerosol Therapy [RC] ASDIRECTED Care 10/21/19 21:51 Active RT Aerosol Therapy [RC] ASDIRECTED Care 10/21/19 21:54 Active Up With Assistance [RC] ASDIRECTED Care 10/21/19 21:47 Active VTE/DVT Education [RC] PER UNIT ROUTINE Care 10/21/19 21:47 Active Vital Signs [RC] Q4H Care 10/21/19 21:47 Active Regular Diet [DIET] Diet 10/21/19 Dinner Active BASIC METABOLIC PANEL,BMP [CHEM] AM Lab 10/22/19 05:11 Ordered CBC W/O DIFF,HEMOGRAM [HEME] AM Lab 10/22/19 05:11 Ordered CULTURE BLOOD [BC] Stat Lab 10/21/19 19:42 Results CULTURE BLOOD [BC] Stat Lab 10/21/19 19:48 Received CULTURE SPUTUM + SMEAR [RM] Routine Lab 10/21/19 21:54 Ordered CULTURE STREP A CONFIRMATION [RM] Stat Lab 10/21/19 19:06 Results PHOSPHORUS [CHEM] AM Lab 10/22/19 05:11 Ordered POTASSIUM,K [CHEM] AM Lab 10/22/19 05:11 Ordered STREP SCRN A RAPID W CULT CONF [RM] Stat Lab 10/21/19 19:06 Results Acetaminophen [Tylenol] Med 10/21/19 21:47 Ordered 650 mg PO Q6H PRN Albuterol [Proventil Neb Soln] Med 10/21/19 21:47 Ordered 2.5 mg NEB Q4H PRN Albuterol/Ipratropium [DuoNeb 3.0-0.5 MG/3 ML] Med 10/22/19 01:00 Ordered 3 ml NEB Q6HRRT Budesonide [Pulmicort] Med 10/21/19 22:00 Ordered 0.5 mg NEB DAILY Docusate Sodium [Colace] Med 10/21/19 21:47 Ordered 100 mg PO BID PRN Docusate Sodium/Sennosides [Senna Plus] Med 10/21/19 21:47 Ordered 1 tab PO BEDTIME PRN Enoxaparin [Lovenox] Med 10/22/19 09:00 Ordered 40 mg SUBCUT DAILY Ondansetron [Zofran ODT] Med 10/21/19 21:47 Ordered 4 mg PO Q6H PRN Ondansetron [Zofran] Med 10/21/19 21:47 Ordered 4 mg IVPUSH Q6H PRN Pharmacy to Dose - Vancomycin Med 10/21/19 22:00 Ordered 1 dose .XX ASDIRECTED Piperacillin/Tazobactam [Zosyn] 3.375 gm Med 10/21/19 22:00 Ordered Sodium Chloride 0.9% [Normal Saline] 100 ml IV Q6H Sodium Chloride 0.9% [Normal Saline] 1,000 ml Med 10/21/19 20:54 Active IV .BOLUS Vancomycin 750 mg Med 10/21/19 20:54 Active Sodium Chloride 0.9% [Normal Saline] 250 ml IV ONETIME Blood Culture x2 Reflex Set [OM.PC] Stat Oth 10/21/19 19:14 Ordered Resuscitation Status Routine Resus Stat 10/21/19 21:47 Ordered Medication Orders Acetaminophen (Tylenol) 650 mg PO Q6H PRN PRN Reason: Pain Albuterol (Proventil Neb Soln) 2.5 mg NEB Q4H PRN PRN Reason: shortness of breath/wheezing Albuterol/Ipratropium (Duoneb 3.0-0.5 Mg/3 Ml) 3 ml NEB Q6HRRT [facility] Budesonide (Pulmicort) 0.5 mg NEB DAILY [facility] Docusate Sodium (Colace) 100 mg PO BID PRN PRN Reason: Constipation Enoxaparin Sodium (Lovenox) 40 mg SUBCUT DAILY [facility] Vancomycin HCl 750 mg/ Sodium (Chloride) 250 mls @ 166.667 mls/hr IV ONETIME ONE Stop: 10/21/19 22:23 Last Admin: 10/21/19 21:05 Dose: 166.667 mls/hr Documented by: EMILIANO Sodium Chloride (Normal Saline) 1,000 mls @ 100 mls/hr IV .BOLUS ONE Stop: 10/22/19 06:53 Last Admin: 10/21/19 21:05 Dose: 100 mls/hr Documented by: EMILIANO Piperacillin Sod/Tazobactam (Sod 3.375 gm/ Sodium Chloride) 100 mls @ 200 mls/hr IV Q6H JAIRO Ondansetron HCl (Zofran Odt) 4 mg PO Q6H PRN PRN Reason: nausea, able to take PO Ondansetron HCl (Zofran) 4 mg IVPUSH Q6H PRN PRN Reason: Nausea/Vomiting Senna/Docusate Sodium (Senna Plus) 1 tab PO BEDTIME PRN PRN Reason: Constipation Vancomycin HCl (Pharmacy To Dose - Vancomycin) 1 dose .XX ASDIRECTED [facility] Assessment/Plan Comment:: #Severe sepsis due to pneumonia: #Bilateral pneumonia: Patient with bilateral pulmonary infiltrates concerning for pneumonia. Also with new O2 requirement. Is on about 2 L of oxygen at baseline but requiring 4.5 L of O2 to keep O2 saturations above 90 in the ED. Patient has cough and greenish sputum production Obtain sputum cultures Supplemental oxygen, titrate to SPO2 of 88 to 92% Follow-up on blood cultures Continue vancomycin and Zosyn Incentive spirometer #Acute on chronic COPD exacerbation: Due to pneumonia #Acute on chronic respiratory failure with hypoxia: Patient with worsening O2 requirement Continue treatment of pneumonia as above DuoNeb's and albuterol and Pulmicort Incentive spirometer Support oxygen, titrate SPO2 of 88 to 92% Prednisone #Unintended weight loss #Weakness Dietitian consult PT and OT consult Prophylaxis DVT: Lovenox GI: General diet CODE STATUS: Patient is DNR/DNI. States that he would like to be treated med ically but otherwise wants to be on palliative care.
[2019-10-21] MEDS: predniSONE 20 MG Tab PO SCH (22:32)
[2019-10-21] MEDS: Piperacillin/Tazobactam 3.375 GM in Sodium Chloride 0.9% 100 ML IV SCH (22:32)
[2019-10-22] MEDS: Albuterol/Ipratropium 3.0-0.5 MG/3 ML Neb Soln NEB SCH ×4 (00:55→18:10)
[2019-10-22 06:48] LABS: ANION GAP 8.1 mEq/L (7-13); CHLORIDE,CL 102 mmol/L (98-107); SODIUM,NA 139 mmol/L (136-145)
[2019-10-22] MEDS: predniSONE 20 MG Tab PO SCH (08:31)
[2019-10-22] MEDS: Enoxaparin 40 MG/0.4 ML Syringe SUBCUT SCH (08:31)
--- NOTE | 2019-10-22 10:11 | PCM.PN ---
- General Info Date of Service: 10/22/19 Admission Dx/Problem (Free Text): Admission Diagnosis/Problem Admission Diagnosis/Problem Severe sepsis with acute organ dysfunction Subjective Update: Continues to have cough with greenish sputum production. States that his breathing is improved. Denies fevers, chills, nausea, vomiting, diarrhea, constipation, dysuria, hematuria, or any new symptoms. - Patient Data Vitals - Most Recent: Last Vital Signs Temp 97.6 F 10/22/19 07:44 Pulse 52 L 10/22/19 07:44 Resp 18 10/22/19 07:44 BP 96/35 L 10/22/19 07:44 Pulse Ox 99 10/22/19 07:44 Weight - Most Recent: 114 lb 9.6 oz I&O - Last 24 Hours: Intake & Output 10/21/19 10/22/19 10/22/19 22:59 06:59 14:59 Intake Total 300 850 Balance 300 850 Lab Results Last 24 Hours: Laboratory Results - last 24 hr 10/21/19 10/21/19 10/21/19 Range/Units 19:05 19:42 19:42 WBC 8.8 (5.0-10.0) 10^3/uL RBC 4.26 L (4.6-6.2) 10^6/uL Hgb 13.4 L D (14.0-18.0) g/dL Hct 42.9 (40.0-54.0) % MCV 100.7 H (80-100) fL MCH 31.5 (27.0-34.0) pg MCHC 31.2 L (33.0-35.0) g/dL Plt Count 150 D (150-450) 10^3/uL Neut % (Auto) 85.7 H (42.2-75.2) % Lymph % (Auto) 4.6 L (20.5-50.1) % [place] % (Auto) 8.6 H (2-8) % Eos % (Auto) 0.9 L (1.0-3.0) % Baso % (Auto) 0.2 (0.0-1.0) % PT (9.0-12.0) SEC INR (0.9-1.2) Sodium (136-145) mmol/L Potassium (3.5-5.1) mmol/L Chloride (98-107) mmol/L Carbon Dioxide (21-32) mmol/L Anion Gap (7-13) mEq/L BUN (7-18) mg/dL Creatinine (0.70-1.30) mg/dL Est Cr Clr Drug Dosing Estimated GFR (MDRD) BUN/Creatinine Ratio (No establ ref range) Glucose (74-99) mg/dL Lactic Acid 1.3 (0.4-2.0) mmol/L Calcium (8.5-10.1) mg/dL Phosphorus (2.6-4.7) mg/dL Total Bilirubin (0.2-1.0) mg/dL AST (15-37) U/L ALT (16-63) U/L Alkaline Phosphatase (46-116) U/L Troponin I (0.000-0.056) ng/mL C-Reactive Protein (0.0-0.9) mg/dL B-Natriuretic Peptide (0-100) pg/ml Total Protein (6.4-8.2) g/dL Albumin (3.4-5.0) g/dL Globulin Albumin/Globulin Ratio COVID-19 (ANGELINA) Negative (NEGATIVE) 10/21/19 10/21/19 10/22/19 Range/Units 19:48 19:48 06:03 WBC 6.6 (5.0-10.0) 10^3/uL RBC 3.75 L (4.6-6.2) 10^6/uL Hgb 11.6 L D (14.0-18.0) g/dL Hct 37.7 L (40.0-54.0) % MCV 100.5 H (80-100) fL MCH 30.9 (27.0-34.0) pg MCHC 30.8 L (33.0-35.0) g/dL Plt Count 146 L (150-450) 10^3/uL Neut % (Auto) (42.2-75.2) % Lymph % (Auto) (20.5-50.1) % [place] % (Auto) (2-8) % Eos % (Auto) (1.0-3.0) % Baso % (Auto) (0.0-1.0) % PT 10.9 (9.0-12.0) SEC INR 1.2 (0.9-1.2) Sodium 138 (136-145) mmol/L Potassium 4.8 (3.5-5.1) mmol/L Chloride 98 (98-107) mmol/L Carbon Dioxide 36 H (21-32) mmol/L Anion Gap 8.8 (7-13) mEq/L BUN 14 (7-18) mg/dL Creatinine 1.10 (0.70-1.30) mg/dL Est Cr Clr Drug Dosing TNP Estimated GFR (MDRD) > 60 BUN/Creatinine Ratio 12.7 (No establ ref range) Glucose 153 H (74-99) mg/dL Lactic Acid (0.4-2.0) mmol/L Calcium 8.7 (8.5-10.1) mg/dL Phosphorus (2.6-4.7) mg/dL Total Bilirubin 0.5 (0.2-1.0) mg/dL AST 22 (15-37) U/L ALT 18 (16-63) U/L Alkaline Phosphatase 60 (46-116) U/L Troponin I < 0.017 (0.000-0.056) ng/mL C-Reactive Protein 3.6 H (0.0-0.9) mg/dL B-Natriuretic Peptide 212 H (0-100) pg/ml Total Protein 8.2 (6.4-8.2) g/dL Albumin 3.5 (3.4-5.0) g/dL Globulin 4.7 Albumin/Globulin Ratio 0.7 COVID-19 (ANGELINA) (NEGATIVE) 10/22/19 Range/Units 06:03 WBC (5.0-10.0) 10^3/uL RBC (4.6-6.2) 10^6/uL Hgb (14.0-18.0) g/dL Hct (40.0-54.0) % MCV (80-100) fL MCH (27.0-34.0) pg MCHC (33.0-35.0) g/dL Plt Count (150-450) 10^3/uL Neut % (Auto) (42.2-75.2) % Lymph % (Auto) (20.5-50.1) % [place] % (Auto) (2-8) % Eos % (Auto) (1.0-3.0) % Baso % (Auto) (0.0-1.0) % PT (9.0-12.0) SEC INR (0.9-1.2) Sodium 139 (136-145) mmol/L Potassium 5.1 (3.5-5.1) mmol/L Chloride 102 (98-107) mmol/L Carbon Dioxide 34 H (21-32) mmol/L Anion Gap 8.1 (7-13) mEq/L BUN 17 (7-18) mg/dL Creatinine 1.00 (0.70-1.30) mg/dL Est Cr Clr Drug Dosing 44.76 Estimated GFR (MDRD) > 60 BUN/Creatinine Ratio (No establ ref range) Glucose 112 H (74-99) mg/dL Lactic Acid (0.4-2.0) mmol/L Calcium 8.4 L (8.5-10.1) mg/dL Phosphorus 3.5 (2.6-4.7) mg/dL Total Bilirubin (0.2-1.0) mg/dL AST (15-37) U/L ALT (16-63) U/L Alkaline Phosphatase (46-116) U/L Troponin I (0.000-0.056) ng/mL C-Reactive Protein (0.0-0.9) mg/dL B-Natriuretic Peptide (0-100) pg/ml Total Protein (6.4-8.2) g/dL Albumin (3.4-5.0) g/dL Globulin Albumin/Globulin Ratio COVID-19 (ANGELINA) (NEGATIVE) Chuck Results Last 24 Hours: Microbiology 10/21/19 22:06 Gram Stain - Final Sputum - Expectorated 10/21/19 19:06 Group A Streptococcus Rapid Screen - Final Throat NEGATIVE STREP A SCREEN REFERENCE RANGE: NEGATIVE 10/21/19 19:42 Anaerobic Blood Culture - Final Blood - Venous Med Orders - Current: Current Medications Acetaminophen (Tylenol) 650 mg PO Q6H PRN PRN Reason: Pain Albuterol (Proventil Neb Soln) 2.5 mg NEB Q4H PRN PRN Reason: shortness of breath/wheezing Albuterol/Ipratropium (Duoneb 3.0-0.5 Mg/3 Ml) 3 ml NEB Q6HRRT JAIRO Last Admin: 10/22/19 07:33 Dose: 3 ml Documented by: Budesonide (Pulmicort) 0.5 mg NEB DAILY [facility] Docusate Sodium (Colace) 100 mg PO BID PRN PRN Reason: Constipation Enoxaparin Sodium (Lovenox) 40 mg SUBCUT DAILY [facility] Last Admin: 10/22/19 08:31 Dose: 40 mg Documented by: Piperacillin Sod/Tazobactam (Sod 3.375 gm/ Sodium Chloride) 100 mls @ 200 mls/hr IV Q6H [facility] Last Admin: 10/21/19 22:32 Dose: 200 mls/hr Documented by: Vancomycin HCl 1 gm/ Sodium (Chloride) 250 mls @ 166.667 mls/hr IV Q24H [facility] Ondansetron HCl (Zofran Odt) 4 mg PO Q6H PRN PRN Reason: nausea, able to take PO Ondansetron HCl (Zofran) 4 mg IVPUSH Q6H PRN PRN Reason: Nausea/Vomiting Prednisone (Prednisone) 40 mg PO DAILY [facility] Last Admin: 10/22/19 08:31 Dose: 40 mg Documented by: Senna/Docusate Sodium (Senna Plus) 1 tab PO BEDTIME PRN PRN Reason: Constipation Vancomycin HCl (Pharmacy To Dose - Vancomycin) 1 dose .XX ASDIRECTED [facility] Discontinued Medications Acetaminophen (Tylenol) 650 mg PO NOW ONE Stop: 10/21/19 19:18 Last Admin: 10/21/19 19:29 Dose: 650 mg Documented by: Vancomycin HCl 750 mg/ Sodium (Chloride) 250 mls @ 166.667 mls/hr IV ONETIME ONE Stop: 10/21/19 22:23 Last Admin: 10/21/19 21:05 Dose: 166.667 mls/hr Documented by: Sodium Chloride (Normal Saline) 1,000 mls @ 100 mls/hr IV .BOLUS ONE Stop: 10/22/19 06:53 Last Admin: 10/21/19 21:05 Dose: 100 mls/hr Documented by: - Exam Quality Assessment: Supplemental Oxygen (3-4 L via NC. ) General: Alert, Oriented, Cooperative HEENT: Pupils Equal, Pupils Reactive, Mucous Membr. Moist/Stokes, Other (Severe hardness of hearing) Neck: Supple Lungs: Decreased Breath Sounds, Rales Cardiovascular: Regular Rate, Regular Rhythm GI/Abdominal Exam: Normal Bowel Sounds, Soft, Non-Tender, No Distention Extremities: Non-Tender, No Pedal Edema Peripheral Pulses: 2+: Radial (L), Radial (R), Dorsalis Pedis (L), Dorsalis Pedis (R) Skin: Warm, Dry, Intact Wound/Incisions: Healing Well Neurological: No New Focal Deficit Psy/Mental Status: Alert, Normal Affect, Normal Mood Sepsis Event Note - Evaluation Sepsis Screening Result: No Definite Risk - Focused Exam Vital Signs: Vital Signs Temp Pulse Resp BP BP Pulse Ox Pulse Ox 10/22/19 07:44 97.6 F 52 L 18 96/35 L 99 10/22/19 07:34 58 L 10/22/19 01:00 98.2 F 53 L 16 98/45 L 100 10/22/19 00:55 100 10/21/19 22:10 100 Date Exam was Performed: 10/22/19 Time Exam was Performed: 10:07 - Problem List & Annotations (1) Severe sepsis with acute organ dysfunction SNOMED Code(s): 12235954 Code(s): A41.9 - SEPSIS, UNSPECIFIED ORGANISM; R65.20 - SEVERE SEPSIS WITHOUT SEPTIC SHOCK Status: Acute Current Visit: Yes (2) Acute respiratory failure with hypoxia SNOMED Code(s): 54247111, 917424381 Code(s): J96.01 - ACUTE RESPIRATORY FAILURE WITH HYPOXIA Status: Acute Current Visit: Yes (3) Bilateral pneumonia SNOMED Code(s): 015948427 Code(s): J18.9 - PNEUMONIA, UNSPECIFIED ORGANISM Status: Acute Current Visit: Yes (4) Weakness SNOMED Code(s): 67594651 Code(s): R53.1 - WEAKNESS Status: Acute Current Visit: Yes (5) COPD (chronic obstructive pulmonary disease) SNOMED Code(s): 98606254 Code(s): J44.9 - CHRONIC OBSTRUCTIVE PULMONARY DISEASE, UNSPECIFIED Status: Acute Current Visit: Yes Qualifiers: COPD type: COPD with acute exacerbation Qualified Code(s): J44.1 - Chronic obstructive pulmonary disease with (acute) exacerbation (6) Impaired gait and mobility SNOMED Code(s): 58694647, 55551415 Code(s): R26.89 - OTHER ABNORMALITIES OF GAIT AND MOBILITY Status: Acute Current Visit: No - Problem List Review Problem List Initiated/Reviewed/Updated: Yes - My Orders Last 24 Hours: My Active Orders 10/21/19 Dinner Regular Diet [DIET] 10/21/19 21:47 Ambulate [RC] ASDIRECTED Bedrest Bedside Commode [RC] ASDIRECTED Height and Weight [RC] DAILY Oxygen Therapy [RC] PRN Up With Assistance [RC] ASDIRECTED VTE/DVT Education [RC] PER UNIT ROUTINE Vital Signs [RC] Q4H Acetaminophen [Tylenol] 650 mg PO Q6H PRN Albuterol [Proventil Neb Soln] 2.5 mg NEB Q4H PRN Docusate Sodium [Colace] 100 mg PO BID PRN Docusate Sodium/Sennosides [Senna Plus] 1 tab PO BEDTIME PRN Ondansetron [Zofran ODT] 4 mg PO Q6H PRN Ondansetron [Zofran] 4 mg IVPUSH Q6H PRN Resuscitation Status Routine 10/21/19 21:49 Intake and Output [RC] QSHIFT 10/21/19 21:54 RT Aerosol Therapy [RC] ASDIRECTED 10/21/19 22:00 Budesonide [Pulmicort] 0.5 mg NEB DAILY Pharmacy to Dose - Vancomycin 1 dose .XX ASDIRECTED Piperacillin/Tazobactam [Zosyn] 3.375 gm Sodium Chloride 0.9% [Normal Saline] 100 ml IV Q6H 10/21/19 22:06 Incentive Spirometry [RT Incentive Spirometry] [RC] Q1HWA OT Evaluation and Treatment [CONS] Routine PT Evaluation and Treatment [CONS] Routine CULTURE SPUTUM + SMEAR [RM] Routine 10/21/19 22:15 predniSONE 40 mg PO DAILY 10/22/19 01:00 Albuterol/Ipratropium [DuoNeb 3.0-0.5 MG/3 ML] 3 ml NEB Q6HRRT 10/22/19 09:00 Enoxaparin [Lovenox] 40 mg SUBCUT DAILY 10/22/19 21:00 Vancomycin 1 gm Sodium Chloride 0.9% [Normal Saline] 250 ml IV Q24H - Plan Plan:: #Severe sepsis due to pneumonia: #Bilateral pneumonia: Patient with bilateral pulmonary infiltrates concerning for pneumonia. Also with new O2 requirement. Is on about 2 L of oxygen at baseline but requiring 4.5 L of O2 to keep O2 saturations above 90 in the ED. Patient has cough and greenish sputum production Follow up on sputum cultures Supplemental oxygen, titrate to SPO2 of 88 to 92% Follow-up on blood cultures Continue vancomycin and Zosyn Incentive spirometer #Acute on chronic COPD exacerbation: Due to pneumonia #Acute on chronic respiratory failure with hypoxia: Improving. Patient with worsening O2 requirement Continue treatment of pneumonia as above DuoNeb's and albuterol and Pulmicort Incentive spirometer Support oxygen, titrate SPO2 of 88 to 92% Prednisone #Unintended weight loss #Weakness Dietitian consult PT and OT consult Prophylaxis DVT: Lovenox GI: General diet CODE STATUS: Patient is DNR/DNI. States that he would like to be treated medically but otherwise wants to be on palliative care.
[2019-10-22] MEDS: Piperacillin/Tazobactam 3.375 GM in Sodium Chloride 0.9% 100 ML IV SCH ×3 (12:07→23:38)
[2019-10-22] MEDS: Budesonide 0.5 MG/2 ML Neb Susp NEB SCH ×2 (13:38→13:43)
[2019-10-22] MEDS: Sodium Chloride 0.9% 10 ML Syringe FLUSH PRN (23:37)
[2019-10-23] MEDS: Albuterol/Ipratropium 3.0-0.5 MG/3 ML Neb Soln NEB SCH ×4 (00:22→17:38)
[2019-10-23] MEDS: Sodium Chloride 0.9% 10 ML Syringe FLUSH PRN ×6 (05:51→23:57)
[2019-10-23] MEDS: Piperacillin/Tazobactam 3.375 GM in Sodium Chloride 0.9% 100 ML IV SCH ×5 (05:52→23:59)
[2019-10-23] MEDS: Enoxaparin 40 MG/0.4 ML Syringe SUBCUT SCH (08:52)
[2019-10-23] MEDS: predniSONE 20 MG Tab PO SCH (08:53)
--- NOTE | 2019-10-23 10:03 | PCM.PN ---
- General Info Date of Service: 10/23/19 Subjective Update: The patient is a 79-year-old man with medical history of COPD, history of tobacco and alcohol use disorder, chronic hypoxemic respiratory failure. Patient was admitted with sepsis secondary to bilateral her pneumonia. Completed 19 was negative. Today, Patient offers no new complaints Indicates to he still feels short of breath Intensity is moderate Has improved over time Associated generalized body malaise. - Review of Systems General: Reports: Weakness, Malaise Pulmonary: Reports: Shortness of Breath, Cough Cardiovascular: Reports: No Symptoms Gastrointestinal: Reports: No Symptoms Musculoskeletal: Reports: No Symptoms - Patient Data Vitals - Most Recent: Last Vital Signs Temp 36.8 C 10/23/19 07:17 Pulse 61 10/23/19 07:50 Resp 24 H 10/23/19 07:17 BP 133/91 H 10/23/19 07:17 Pulse Ox 98 10/23/19 07:50 Weight - Most Recent: 53.433 kg I&O - Last 24 Hours: Intake & Output 10/22/19 10/23/19 10/23/19 22:59 06:59 14:59 Intake Total 1510 844 620 Output Total 900 600 Balance 610 244 620 Chuck Results Last 24 Hours: Microbiology 10/21/19 19:06 Quick Strep Confirmation Culture - Final Throat NO GROUP A STREP ISOLATED REFERENCE RANGE: NEGATIVE Group A Streptococcus Rapid Screen - Final NEGATIVE STREP A SCREEN REFERENCE RANGE: NEGATIVE 10/21/19 19:48 Aerobic Blood Culture - Preliminary Blood - Venous - Lab Draw NO GROWTH AFTER 1 DAY Anaerobic Blood Culture - Preliminary NO GROWTH AFTER 1 DAY 10/21/19 19:42 Aerobic Blood Culture - Preliminary Blood - Venous NO GROWTH AFTER 1 DAY Anaerobic Blood Culture - Final Med Orders - Current: Current Medications Acetaminophen (Tylenol) 650 mg PO Q6H PRN PRN Reason: Pain Albuterol (Proventil Neb Soln) 2.5 mg NEB Q4H PRN PRN Reason: shortness of breath/wheezing Albuterol/Ipratropium (Duoneb 3.0-0.5 Mg/3 Ml) 3 ml NEB Q6HRRT [facility] Last Admin: 10/23/19 07:50 Dose: 3 ml Documented by: Docusate Sodium (Colace) 100 mg PO BID PRN PRN Reason: Constipation, use 1st Enoxaparin Sodium (Lovenox) [address] [facility] Last Admin: 10/23/19 08:52 Dose: 40 mg Documented by: Vancomycin HCl 1 gm/ Sodium (Chloride) 250 mls @ 166.667 mls/hr IV Q24H [facility] Last Admin: 10/22/19 21:04 Dose: 166.667 mls/hr Documented by: Piperacillin Sod/Tazobactam (Sod 3.375 gm/ Sodium Chloride) 100 mls @ 200 mls/hr IV Q6HR [facility] Last Infusion: 10/23/19 06:23 Dose: Infused Documented by: Ondansetron HCl (Zofran Odt) 4 mg PO Q6H PRN PRN Reason: nausea, able to take PO Ondansetron HCl (Zofran) 4 mg IVPUSH Q6H PRN PRN Reason: Nausea/Vomiting Prednisone (Prednisone) [address] [facility] Last Admin: 10/23/19 08:53 Dose: 40 mg Documented by: Senna/Docusate Sodium (Senna Plus) 1 tab PO BEDTIME PRN PRN Reason: Constipation, use 2nd Sodium Chloride (Saline Flush) 10 ml FLUSH ASDIRECTED PRN PRN Reason: IV Use Last Admin: 10/23/19 05:51 Dose: 10 ml Documented by: Vancomycin HCl (Pharmacy To Dose - Vancomycin) [address] [facility] Discontinued Medications Acetaminophen (Tylenol) 650 mg PO NOW ONE Stop: 10/21/19 19:18 Last Admin: 10/21/19 19:29 Dose: 650 mg Documented by: Budesonide (Pulmicort) 0.[address] [facility] Last Admin: 10/22/19 13:43 Dose: Not Given Documented by: Vancomycin HCl 750 mg/ Sodium (Chloride) 250 mls @ 166.667 mls/hr IV ONETIME ONE Stop: 10/21/19 22:23 Last Admin: 10/21/19 21:05 Dose: 166.667 mls/hr Documented by: Sodium Chloride (Normal Saline) 1,000 mls @ 100 mls/hr IV .BOLUS ONE Stop: 10/22/19 06:53 Last Admin: 10/21/19 21:05 Dose: 100 mls/hr Documented by: Piperacillin Sod/Tazobactam (Sod 3.375 gm/ Sodium Chloride) 100 mls @ 200 mls/hr IV Q6H [facility] Last Admin: 10/23/19 06:54 Dose: Not Given Documented by: - Exam General: Alert, Oriented, Cooperative, No Acute Distress Neck: Supple Lungs: Decreased Breath Sounds, Wheezing Cardiovascular: Regular Rate, Regular Rhythm GI/Abdominal Exam: Normal Bowel Sounds, Soft, Non-Tender, No Organomegaly, No Distention, No Abnormal Bruit, No Mass, Pelvis Stable Sepsis Event Note - Evaluation Sepsis Screening Result: No Definite Risk - Focused Exam Vital Signs: Vital Signs Temp Pulse Resp BP Pulse Ox Pulse Ox 10/23/19 07:50 61 98 10/23/19 07:17 36.8 C 71 24 H 133/91 H 98 10/23/19 05:15 36.6 C 60 20 95/44 L 95 10/23/19 00:30 98 10/23/19 00:25 63 98 10/22/19 23:00 36.9 C 63 20 96/46 L 99 Date Exam was Performed: 10/23/19 Time Exam was Performed: 10:00 - Problem List Review Problem List Initiated/Reviewed/Updated: Yes - Plan Plan:: #Severe sepsis due to pneumonia: #Bilateral pneumonia: Patient with bilateral pulmonary infiltrates concerning for pneumonia. Patient has cough and greenish sputum production Follow up on sputum cultures Supplemental oxygen, titrate to SPO2 of 88 to 92% Continue current antibiotics #Acute on chronic COPD exacerbation: Due to pneumonia #Acute on chronic respiratory failure with hypoxia: Improving. Bronchodilators Continue antibiotics #Unintended weight loss #Weakness Dietitian consult PT and OT consult Prophylaxis DVT: Lovenox GI: General diet CODE STATUS: Patient is DNR/DNI. States that he would like to be treated medically but otherwise wants to be on palliative care.
[2019-10-24] MEDS: Albuterol/Ipratropium 3.0-0.5 MG/3 ML Neb Soln NEB SCH ×5 (00:08→23:19)
[2019-10-24] MEDS: Sodium Chloride 0.9% 10 ML Syringe FLUSH PRN ×7 (00:33→23:53)
[2019-10-24] MEDS: Piperacillin/Tazobactam 3.375 GM in Sodium Chloride 0.9% 100 ML IV SCH ×4 (06:03→23:53)
[2019-10-24] MEDS: predniSONE 20 MG Tab PO SCH (09:37)
[2019-10-24] MEDS: Enoxaparin 40 MG/0.4 ML Syringe SUBCUT SCH (09:37)
--- NOTE | 2019-10-24 10:42 | PCM.PN ---
- General Info Date of Service: 10/24/19 Subjective Update: Patient indicates that he still feels short of breath Intensity is moderate No change overnight. Has associated wheezing. He is asking for Symbicort - Review of Systems General: Reports: Weakness, Fatigue Pulmonary: Reports: Shortness of Breath, Wheezing Cardiovascular: Reports: No Symptoms Gastrointestinal: Reports: No Symptoms Genitourinary: Reports: No Symptoms Musculoskeletal: Reports: No Symptoms - Patient Data Vitals - Most Recent: Last Vital Signs Temp 36.6 C 10/24/19 09:00 Pulse 64 10/24/19 09:00 Resp 16 10/24/19 09:00 BP 111/75 10/24/19 09:00 Pulse Ox 98 10/24/19 09:00 Weight - Most Recent: 54.068 kg I&O - Last 24 Hours: Intake & Output 10/23/19 10/24/19 10/24/19 22:59 06:59 14:59 Intake Total 751 646 320 Output Total 805 400 Balance -54 646 -80 Chuck Results Last 24 Hours: Microbiology 10/21/19 19:48 Aerobic Blood Culture - Preliminary Blood - Venous - Lab Draw NO GROWTH AFTER 2 DAYS Anaerobic Blood Culture - Preliminary NO GROWTH AFTER 2 DAYS 10/21/19 19:42 Aerobic Blood Culture - Preliminary Blood - Venous NO GROWTH AFTER 2 DAYS Anaerobic Blood Culture - Final 10/21/19 19:06 Quick Strep Confirmation Culture - Final Throat NO GROUP A STREP ISOLATED REFERENCE RANGE: NEGATIVE Group A Streptococcus Rapid Screen - Final NEGATIVE STREP A SCREEN REFERENCE RANGE: NEGATIVE Med Orders - Current: Current Medications Acetaminophen (Tylenol) 650 mg PO Q6H PRN PRN Reason: Pain Albuterol (Proventil Neb Soln) 2.5 mg NEB Q4H PRN PRN Reason: shortness of breath/wheezing Albuterol/Ipratropium (Duoneb 3.0-0.5 Mg/3 Ml) 3 ml NEB Q6HRRT [facility] Last Admin: 10/24/19 07:55 Dose: 3 ml Documented by: Docusate Sodium (Colace) 100 mg PO BID PRN PRN Reason: Constipation, use 1st Enoxaparin Sodium (Lovenox) 40 mg SUBCUT DAILY [facility] Last Admin: 10/24/19 09:37 Dose: 40 mg Documented by: Piperacillin Sod/Tazobactam (Sod 3.375 gm/ Sodium Chloride) 100 mls @ 200 mls/hr IV Q6HR [facility] Last Infusion: 10/24/19 06:37 Dose: Infused Documented by: Vancomycin HCl 1 gm/ Sodium (Chloride) 250 mls @ 166.667 mls/hr IV Q24H [facility] Last Admin: 10/23/19 20:36 Dose: 166.667 mls/hr Documented by: Ondansetron HCl (Zofran Odt) 4 mg PO Q6H PRN PRN Reason: nausea, able to take PO Ondansetron HCl (Zofran) 4 mg IVPUSH Q6H PRN PRN Reason: Nausea/Vomiting Prednisone (Prednisone) 40 mg PO DAILY [facility] Last Admin: 10/24/19 09:37 Dose: 40 mg Documented by: Senna/Docusate Sodium (Senna Plus) 1 tab PO BEDTIME PRN PRN Reason: Constipation, use 2nd Sodium Chloride (Saline Flush) 10 ml FLUSH ASDIRECTED PRN PRN Reason: IV Use Last Admin: 10/24/19 06:38 Dose: 10 ml Documented by: Vancomycin HCl (Pharmacy To Dose - Vancomycin) 1 dose .XX ASDIRECTED [facility] Discontinued Medications Acetaminophen (Tylenol) 650 mg PO NOW ONE Stop: 10/21/19 19:18 Last Admin: 10/21/19 19:29 Dose: 650 mg Documented by: Budesonide (Pulmicort) 0.5 mg NEB DAILY [facility] Last Admin: 10/22/19 13:43 Dose: Not Given Documented by: Vancomycin HCl 750 mg/ Sodium (Chloride) 250 mls @ 166.667 mls/hr IV ONETIME ONE Stop: 10/21/19 22:23 Last Admin: 10/21/19 21:05 Dose: 166.667 mls/hr Documented by: Sodium Chloride (Normal Saline) 1,000 mls @ 100 mls/hr IV .BOLUS ONE Stop: 10/22/19 06:53 Last Admin: 10/21/19 21:05 Dose: 100 mls/hr Documented by: Piperacillin Sod/Tazobactam (Sod 3.375 gm/ Sodium Chloride) 100 mls @ 200 mls/hr IV Q6H [facility] Last Admin: 10/23/19 06:54 Dose: Not Given Documented by: Vancomycin HCl 1 gm/ Sodium (Chloride) 250 mls @ 166.667 mls/hr IV Q24H [facility] Last Admin: 10/22/19 21:04 Dose: 166.667 mls/hr Documented by: - Exam Quality Assessment: Supplemental Oxygen General: Alert, Oriented, Cooperative Lungs: Decreased Breath Sounds Cardiovascular: Regular Rhythm, No Murmurs GI/Abdominal Exam: Normal Bowel Sounds, Soft, Non-Tender, No Organomegaly, No Distention, No Abnormal Bruit, No Mass, Pelvis Stable Sepsis Event Note - Evaluation Sepsis Screening Result: No Definite Risk - Focused Exam Vital Signs: Vital Signs Temp Pulse Resp BP Pulse Ox Pulse Ox 10/24/19 09:00 36.6 C 64 16 111/75 98 10/24/19 07:56 91 10/24/19 03:22 36.4 C 60 20 116/73 95 10/24/19 00:08 67 96 10/23/19 23:00 36.4 C 61 20 107/49 L 96 Date Exam was Performed: 10/24/19 Time Exam was Performed: 10:39 - Problem List Review Problem List Initiated/Reviewed/Updated: Yes - My Orders Last 24 Hours: My Active Orders 10/25/19 05:11 BASIC METABOLIC PANEL,BMP [CHEM] AM CBC W/O DIFF,HEMOGRAM [HEME] AM - Plan Plan:: #Severe sepsis due to pneumonia: #Bilateral pneumonia: Patient with bilateral pulmonary infiltrates concerning for pneumonia. #Acute on chronic COPD exacerbation: Due to pneumonia #Acute on chronic respiratory failure with hypoxia: Improving. #Unintended weight loss #Weakness Plan: Continue aggressive nebulization with DuoNeb every 4 hours Albuterol every 2 hours Prednisone 40 mg daily Physical therapy and occupational therapy CODE STATUS: Patient is DNR/DNI. States that he would like to be treated medically but otherwise wants to be on palliative care.
[2019-10-25] MEDS: Sodium Chloride 0.9% 10 ML Syringe FLUSH PRN ×2 (00:25→06:01)
[2019-10-25] MEDS: Albuterol/Ipratropium 3.0-0.5 MG/3 ML Neb Soln NEB SCH ×5 (03:12→20:18)
[2019-10-25] MEDS: Piperacillin/Tazobactam 3.375 GM in Sodium Chloride 0.9% 100 ML IV SCH ×3 (06:02→17:54)
[2019-10-25 06:38] LABS: ANION GAP 9.4 mEq/L (7-13); CHLORIDE,CL 102 mmol/L (98-107); SODIUM,NA 139 mmol/L (136-145)
[2019-10-25] MEDS: predniSONE 20 MG Tab PO SCH (08:04)
[2019-10-25] MEDS: Enoxaparin 40 MG/0.4 ML Syringe SUBCUT SCH (08:04)
--- NOTE | 2019-10-25 10:32 | PCM.PN ---
- General Info Date of Service: 10/25/19 Subjective Update: The patient indicates that his breathing is better today Still coughs intermittently. Cough up Small amount of blood after nebulization No fever and no chills. - Review of Systems General: Reports: Weakness Pulmonary: Reports: Shortness of Breath, Cough Cardiovascular: Reports: No Symptoms Gastrointestinal: Reports: No Symptoms Musculoskeletal: Reports: No Symptoms - Patient Data Vitals - Most Recent: Last Vital Signs Temp 36.9 C 10/25/19 07:52 Pulse 67 10/25/19 09:19 Resp 18 10/25/19 07:52 BP 118/54 L 10/25/19 07:52 Pulse Ox 97 10/25/19 09:19 Weight - Most Recent: 54.25 kg I&O - Last 24 Hours: Intake & Output 10/24/19 10/25/19 10/25/19 22:59 06:59 14:59 Intake Total 1071 695 480 Output Total 900 900 500 Balance Lab Results Last 24 Hours: Laboratory Results - last 24 hr 10/25/19 10/25/19 Range/Units 05:30 05:30 WBC 7.5 (5.0-10.0) 10^3/uL RBC 3.15 L (4.6-6.2) 10^6/uL Hgb 9.9 L D (14.0-18.0) g/dL Hct 31.5 L (40.0-54.0) % MCV 100.0 (80-100) fL MCH 31.4 (27.0-34.0) pg MCHC 31.4 L (33.0-35.0) g/dL Plt Count 142 L (150-450) 10^3/uL Sodium 139 (136-145) mmol/L Potassium 4.4 (3.5-5.1) mmol/L Chloride 102 (98-107) mmol/L Carbon Dioxide 32 (21-32) mmol/L Anion Gap 9.4 (7-13) mEq/L BUN 13 (7-18) mg/dL Creatinine 0.88 (0.70-1.30) mg/dL Est Cr Clr Drug Dosing 53.09 mL/min Estimated GFR (MDRD) > 60 Glucose 104 H (74-99) mg/dL Calcium 8.3 L (8.5-10.1) mg/dL Chuck Results Last 24 Hours: Microbiology 10/21/19 19:48 Aerobic Blood Culture - Preliminary Blood - Venous - Lab Draw NO GROWTH AFTER 3 DAYS Anaerobic Blood Culture - Preliminary NO GROWTH AFTER 3 DAYS 10/21/19 19:42 Aerobic Blood Culture - Preliminary Blood - Venous NO GROWTH AFTER 3 DAYS Anaerobic Blood Culture - Final 10/21/19 22:06 Gram Stain - Final Sputum - Expectorated Sputum Culture - Preliminary NORMAL RESPIRATORY GARY 1 DAY Med Orders - Current: Current Medications Acetaminophen (Tylenol) 650 mg PO Q6H PRN PRN Reason: Pain Albuterol (Proventil Neb Soln) 2.5 mg NEB Q4H PRN PRN Reason: shortness of breath/wheezing Albuterol/Ipratropium (Duoneb 3.0-0.5 Mg/3 Ml) 3 ml NEB Q4HRRT [facility] Last Admin: 10/25/19 09:21 Dose: 3 ml Documented by: Docusate Sodium (Colace) 100 mg PO BID PRN PRN Reason: Constipation, use 1st Enoxaparin Sodium (Lovenox) 40 mg SUBCUT DAILY [facility] Last Admin: 10/25/19 08:04 Dose: 40 mg Documented by: Piperacillin Sod/Tazobactam (Sod 3.375 gm/ Sodium Chloride) 100 mls @ 200 mls/hr IV Q6HR [facility] Last Infusion: 10/25/19 06:35 Dose: Infused Documented by: Ondansetron HCl (Zofran Odt) 4 mg PO Q6H PRN PRN Reason: nausea, able to take PO Ondansetron HCl (Zofran) 4 mg IVPUSH Q6H PRN PRN Reason: Nausea/Vomiting Prednisone (Prednisone) 40 mg PO DAILY [facility] Last Admin: 10/25/19 08:04 Dose: 40 mg Documented by: Senna/Docusate Sodium (Senna Plus) 1 tab PO BEDTIME PRN PRN Reason: Constipation, use 2nd Sodium Chloride (Saline Flush) 10 ml FLUSH ASDIRECTED PRN PRN Reason: IV Use Last Admin: 10/25/19 06:01 Dose: 10 ml Documented by: Discontinued Medications Acetaminophen (Tylenol) 650 mg PO NOW ONE Stop: 10/21/19 19:18 Last Admin: 10/21/19 19:29 Dose: 650 mg Documented by: Albuterol/Ipratropium (Duoneb 3.0-0.5 Mg/3 Ml) 3 ml NEB Q6HRRT [facility] Last Admin: 10/24/19 13:26 Dose: 3 ml Documented by: Budesonide (Pulmicort) 0.5 mg NEB DAILY [facility] Last Admin: 10/22/19 13:43 Dose: Not Given Documented by: Vancomycin HCl 750 mg/ Sodium (Chloride) 250 mls @ 166.667 mls/hr IV ONETIME ONE Stop: 10/21/19 22:23 Last Admin: 10/21/19 21:05 Dose: 166.667 mls/hr Documented by: Sodium Chloride (Normal Saline) 1,000 mls @ 100 mls/hr IV .BOLUS ONE Stop: 10/22/19 06:53 Last Admin: 10/21/19 21:05 Dose: 100 mls/hr Documented by: Piperacillin Sod/Tazobactam (Sod 3.375 gm/ Sodium Chloride) 100 mls @ 200 mls/hr IV Q6H [facility] Last Admin: 10/23/19 06:54 Dose: Not Given Documented by: Vancomycin HCl 1 gm/ Sodium (Chloride) 250 mls @ 166.667 mls/hr IV Q24H [facility] Last Admin: 10/22/19 21:04 Dose: 166.667 mls/hr Documented by: Vancomycin HCl 1 gm/ Sodium (Chloride) 250 mls @ 166.667 mls/hr IV Q24H [facility] Last Admin: 10/24/19 20:51 Dose: 166.667 mls/hr Documented by: Vancomycin HCl (Pharmacy To Dose - Vancomycin) 1 dose .XX ASDIRECTED [facility] - Exam Quality Assessment: Supplemental Oxygen General: Alert, Oriented, Cooperative Neck: Supple Lungs: Decreased Breath Sounds, Other (Occasional wheezing) Cardiovascular: Regular Rate, Regular Rhythm GI/Abdominal Exam: Normal Bowel Sounds, Soft, Non-Tender, No Organomegaly, No Distention, No Abnormal Bruit, No Mass, Pelvis Stable Extremities: Normal Inspection, Normal Range of Motion, Non-Tender, No Pedal Edema, Normal Capillary Refill Sepsis Event Note - Evaluation Sepsis Screening Result: No Definite Risk - Focused Exam Vital Signs: Vital Signs Temp Pulse Resp BP BP Pulse Ox Pulse Ox 10/25/19 09:19 67 97 10/25/19 07:52 36.9 C 59 L 18 118/54 L 100 10/25/19 03:12 64 98 10/25/19 03:07 36.6 C 56 L 18 104/50 L 98 10/24/19 23:07 36.6 C 60 18 118/54 L 97 Date Exam was Performed: 10/25/19 Time Exam was Performed: 10:30 - Problem List Review Problem List Initiated/Reviewed/Updated: Yes - My Orders Last 24 Hours: My Active Orders 10/24/19 15:39 RT Aerosol Therapy [RC] ASDIRECTED 10/24/19 19:00 Albuterol/Ipratropium [DuoNeb 3.0-0.5 MG/3 ML] 3 ml NEB Q4HRRT 10/26/19 05:11 CBC W/O DIFF,HEMOGRAM [HEME] AM - Plan Plan:: #Severe sepsis due to pneumonia: #Bilateral pneumonia: Patient with bilateral pulmonary infiltrates concerning for pneumonia. #Acute on chronic COPD exacerbation: Due to pneumonia #Acute on chronic respiratory failure with hypoxia: Improving. #Unintended weight loss #Weakness Plan: Patient is making some progress Discontinue vancomycin Continue Zosyn Physical therapy Occupational therapy Continue nebulization with DuoNeb and albuterol CODE STATUS: Patient is DNR/DNI. States that he would like to be treated medically but otherwise wants to be on palliative care.
[2019-10-26] MEDS: Piperacillin/Tazobactam 3.375 GM in Sodium Chloride 0.9% 100 ML IV SCH ×3 (00:14→11:45)
[2019-10-26] MEDS: Albuterol/Ipratropium 3.0-0.5 MG/3 ML Neb Soln NEB SCH ×4 (00:14→11:27)
[2019-10-26] MEDS: Enoxaparin 40 MG/0.4 ML Syringe SUBCUT SCH (08:41)
[2019-10-26] MEDS: predniSONE 20 MG Tab PO SCH (08:41)
--- NOTE | 2019-10-26 10:03 | PCM.DCSUM1 ---
Discharge Summary - Hospital Course Free Text/Narrative:: The patient is a 79-year-old man with medical history of COPD, history of tobacco and alcohol use disorder, chronic hypoxemic respiratory failure. Patient was admitted with sepsis secondary to bilateral her pneumonia. Corvid 19 was negative. The patient was kept on intravenous antibiotics and aggressive nebulization with bronchodilators. He is feeling better and will be discharged home on oral antibiotics. Blood cultures were negative #Severe sepsis due to pneumonia: #Bilateral pneumonia: Patient with bilateral pulmonary infiltrates concerning for pneumonia. #Acute on chronic COPD exacerbation: Due to pneumonia #Acute on chronic respiratory failure with hypoxia: Improving. #Unintended weight loss #Weakness - Discharge Data Discharge Date: 10/26/19 Discharge Disposition: Home, Self-Care 01 Condition: Good - Referral to Home Health Primary Care Physician: PCP None - Patient Summary/Data Consults: Consultations 10/21/19 22:06 OT Evaluation and Treatment [CONS] Routine PT Evaluation and Treatment [CONS] Routine - Patient Instructions Diet: Usual Diet as Tolerated Activity: As Tolerated Notify Provider of: Fever, Swelling and Redness, Nausea and/or Vomiting - Discharge Plan *PRESCRIPTION DRUG MONITORING PROGRAM REVIEWED*: No *COPY OF PRESCRIPTION DRUG MONITORING REPORT IN PATIENT MISSY: No Prescriptions/Med Rec: Amoxicillin/Potassium Clav [Augmentin 875-125 Tablet] 1 each PO BID 7 Days #14 tablet Albuterol/Ipratropium [DuoNeb 3.0-0.5 MG/3 ML] 3 ml NEB QID 30 Days #10 ampule predniSONE 10 mg PO DAILY #17 tablet Albuterol [Proventil Neb Soln] 2.5 mg NEB Q4H PRN #20 each PRN Reason: shortness of breath/wheezing Home Medications: Home Meds Acetaminophen [Acetaminophen Extra Strength] 500 mg PO ASDIRECTED PRN 11/22/16 [History] Albuterol [Proventil Neb Soln] 2.5 mg NEB Q4H PRN #20 each 10/26/19 [Rx] Albuterol/Ipratropium [DuoNeb 3.0-0.5 MG/3 ML] 3 ml NEB QID 30 Days #10 ampule 10/26/19 [Rx] Amoxicillin/Potassium Clav [Augmentin 875-125 Tablet] 1 each PO BID 7 Days #14 tablet 10/26/19 [Rx] predniSONE 10 mg PO DAILY #17 tablet 10/26/19 [Rx] Referrals: Randy Salcedo NP [Ordering Only Provider] - - Discharge Summary/Plan Comment DC Time >30 min.: No - Review of Systems General: Reports: Weakness Pulmonary: Reports: Shortness of Breath, Cough Cardiovascular: Reports: No Symptoms Gastrointestinal: Reports: No Symptoms Musculoskeletal: Reports: No Symptoms - Patient Data Vitals - Most Recent: Last Vital Signs Temp 36.8 C 10/26/19 08:17 Pulse 67 10/26/19 08:17 Resp 20 10/26/19 08:17 BP 131/72 10/26/19 08:17 Pulse Ox 99 10/26/19 08:17 Weight - Most Recent: 54.488 kg I&O - Last 24 hours: Intake & Output 10/25/19 10/26/19 10/26/19 22:59 06:59 14:59 Intake Total 972 Output Total 1954 1699 Balance -1954 Lab Results - Last 24 hrs: Laboratory Results - last 24 hr 10/26/19 Range/Units 05:30 WBC 6.8 (5.0-10.0) 10^3/uL RBC 3.29 L (4.6-6.2) 10^6/uL Hgb 10.4 L (14.0-18.0) g/dL Hct 32.8 L (40.0-54.0) % MCV 99.7 (80-100) fL MCH 31.6 (27.0-34.0) pg MCHC 31.7 L (33.0-35.0) g/dL Plt Count 164 (150-450) 10^3/uL [facility] Results - Last 24 hrs: Microbiology 10/21/19 19:48 Aerobic Blood Culture - Preliminary Blood - Venous - Lab Draw NO GROWTH AFTER 4 DAYS Anaerobic Blood Culture - Preliminary NO GROWTH AFTER 4 DAYS 10/21/19 19:42 Aerobic Blood Culture - Preliminary Blood - Venous NO GROWTH AFTER 4 DAYS Anaerobic Blood Culture - Final 10/21/19 22:06 Gram Stain - Final Sputum - Expectorated Sputum Culture - Final NORMAL RESPIRATORY GARY 2 DAYS Med Orders - Current: Current Medications Acetaminophen (Tylenol) 650 mg PO Q6H PRN PRN Reason: Pain Albuterol (Proventil Neb Soln) 2.5 mg NEB Q4H PRN PRN Reason: shortness of breath/wheezing Albuterol/Ipratropium (Duoneb 3.0-0.5 Mg/3 Ml) 3 ml NEB Q4HRRT [facility] Last Admin: 10/26/19 07:42 Dose: 3 ml Documented by: Docusate Sodium (Colace) 100 mg PO BID PRN PRN Reason: Constipation, use 1st Enoxaparin Sodium (Lovenox) 40 mg SUBCUT DAILY [facility] Last Admin: 10/26/19 08:41 Dose: 40 mg Documented by: Piperacillin Sod/Tazobactam (Sod 3.375 gm/ Sodium Chloride) 100 mls @ 200 mls/hr IV Q6HR [facility] Last Admin: 10/26/19 05:50 Dose: 200 mls/hr Documented by: Ondansetron HCl (Zofran Odt) 4 mg PO Q6H PRN PRN Reason: nausea, able to take PO Ondansetron HCl (Zofran) 4 mg IVPUSH Q6H PRN PRN Reason: Nausea/Vomiting Prednisone (Prednisone) 40 mg PO DAILY [facility] Last Admin: 10/26/19 08:41 Dose: 40 mg Documented by: Senna/Docusate Sodium (Senna Plus) 1 tab PO BEDTIME PRN PRN Reason: Constipation, use 2nd Sodium Chloride (Saline Flush) 10 ml FLUSH ASDIRECTED PRN PRN Reason: IV Use Last Admin: 10/25/19 06:01 Dose: 10 ml Documented by: Discontinued Medications Acetaminophen (Tylenol) 650 mg PO NOW ONE Stop: 10/21/19 19:18 Last Admin: 10/21/19 19:29 Dose: 650 mg Documented by: Albuterol/Ipratropium (Duoneb 3.0-0.5 Mg/3 Ml) 3 ml NEB Q6HRRT [facility] Last Admin: 10/24/19 13:26 Dose: 3 ml Documented by: Budesonide (Pulmicort) 0.5 mg NEB DAILY [facility] Last Admin: 10/22/19 13:43 Dose: Not Given Documented by: Vancomycin HCl 750 mg/ Sodium (Chloride) 250 mls @ 166.667 mls/hr IV ONETIME ONE Stop: 10/21/19 22:23 Last Admin: 10/21/19 21:05 Dose: 166.667 mls/hr Documented by: Sodium Chloride (Normal Saline) 1,000 mls @ 100 mls/hr IV .BOLUS ONE Stop: 10/22/19 06:53 Last Admin: 10/21/19 21:05 Dose: 100 mls/hr Documented by: Piperacillin Sod/Tazobactam (Sod 3.375 gm/ Sodium Chloride) 100 mls @ 200 mls/hr IV Q6H [facility] Last Admin: 10/23/19 06:54 Dose: Not Given Documented by: Vancomycin HCl 1 gm/ Sodium (Chloride) 250 mls @ 166.667 mls/hr IV Q24H [facility] Last Admin: 10/22/19 21:04 Dose: 166.667 mls/hr Documented by: Vancomycin HCl 1 gm/ Sodium (Chloride) 250 mls @ 166.667 mls/hr IV Q24H [facility] Last Admin: 10/24/19 20:51 Dose: 166.667 mls/hr Documented by: Vancomycin HCl (Pharmacy To Dose - Vancomycin) 1 dose .XX ASDIRECTED [facility] - Exam Quality Assessment: Reports: Supplemental Oxygen General: Reports: Alert, Oriented, Cooperative HEENT: Reports: Pupils Equal, Pupils Reactive, EOMI, Mucous Membr. Moist/[place] Neck: Reports: Supple Lungs: Reports: Decreased Breath Sounds Cardiovascular: Reports: Regular Rate, Regular Rhythm GI/Abdominal Exam: Normal Bowel Sounds, Soft, Non-Tender, No Organomegaly, No Distention, No Abnormal Bruit, No Mass, Pelvis Stable Extremities: Normal Inspection, Normal Range of Motion, Non-Tender, No Pedal Edema, Normal Capillary Refill
[2019-10-26 12:02] VITALS: BP 116/43; PULSE 73
== END 2019-10-26 13:03 | disposition home or self-care (01) | DRG 871 ==
LOC: DL.ED 18:43 → DL.MS 20:56
PROVIDERS: ADMIT Internal Medicine; ATTEND Hospitalist
DX: A41.9 Sepsis, unspecified organism (principal); J44.0 Chronic obstructive pulmonary disease with (acute) lower respiratory infection; J96.21 Acute and chronic respiratory failure with hypoxia; J18.9 Pneumonia, unspecified organism; Z66 Do not resuscitate; J44.1 Chronic obstructive pulmonary disease with (acute) exacerbation; R63.4 Abnormal weight loss; H54.7 Unspecified visual loss; H91.90 Unspecified hearing loss, unspecified ear; R32 Unspecified urinary incontinence; Z79.52 Long term (current) use of systemic steroids; Z79.899 Other long term (current) drug therapy; Z85.118 Personal history of other malignant neoplasm of bronchus and lung; Z87.891 Personal history of nicotine dependence; Z88.0 Allergy status to penicillin; Z88.1 Allergy status to other antibiotic agents; Z99.81 Dependence on supplemental oxygen; Z79.51 Long term (current) use of inhaled steroids; Z20.828 Contact with and (suspected) exposure to other viral communicable diseases
CPT/HCPCS: 36415; 71045; 80048; 80053; 83605; 83880; 84100; 84484; 85025; 85027; 85610; 86140; 87040; 87070; 87081; 87205; 87430; 93005; 94640; 97110-GP; 97161-GP; 97165-GO; 99284; 99285-25; A9270-GY; J1650; J2543; J3370; J7030; J7050; J7512; J7620-GY; U0002